=== PATIENT | female | born 1995 | race Caucasian/White ===

== ENCOUNTER 2016-12-07 21:36 | Emergency (ER) | payer OTHER ==
[2016-12-07 21:55] VITALS: BP 135/95; PULSE 78; RESP 18; TEMP 98.3
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
== END 2016-12-07 22:20 | disposition home or self-care (01) ==
LOC: EC 21:36
DX: R42 Dizziness and giddiness (principal); H92.03 Otalgia, bilateral; Z91.011 Allergy to milk products; Z88.8 Allergy status to other drugs, medicaments and biological substances
CPT/HCPCS: 99282

== ENCOUNTER 2017-02-10 21:48 | Emergency (ER) | payer OTHER ==
[2017-02-10] MEDS: SODIUM CHLORIDE 0.9% 1,000 ML IV STA (22:37)
[2017-02-10] MEDS: ONDANSETRON 4 MG/2 ML VIAL IVP STA (22:41)
[2017-02-10] MEDS: MAG HYDROX/AL HYDROX/SIMETH 30 ML, HYOSCYAMINE ELIXIR 10 ML, CIMETIDINE HCL 300 MG, LID... PO STA ×4 (22:42)
[2017-02-10 22:47] LABS: Basophils # (A) 0.1 k/uL (0-0.2); Basophils % (A) 1 %; CHCM 35.5; Eosinophils # (A) 0.2 k/uL (0-0.7); Eosinophils % (A) 2 %; HCT 46.7 % (34.0-46.0); HDW 2.73; HGB 15.7 gm/dL (11.4-16.0); Luc # (Auto) 0.33; Luc % (Auto) 3; Lymphocytes # (A) 4.8 k/uL (1.0-4.8); Lymphocytes % (A) 37 %; MCH 29.4 pg (25.0-35.0); MCHC 33.6 g/dL (31.0-37.0); MCV 87.5 fL (80.0-100.0); Mean Platelet Volume 6.9; Monocytes # (A) 0.5 k/uL (0-1.0); Monocytes % (A) 4 %; Neutrophils % (A) 54 %; RBC 5.33 m/uL (3.80-5.40); RDW 13.5 % (11.5-15.5); WBC (Perox) 12.08
[2017-02-10 22:56] LABS: ALT 59 U/L (9-52); AST 29 U/L (14-36); Alkaline Phosphatase 55 U/L (38-126); Amylase 60 U/L (30-110); Anion Gap 15 mmol/L; Appearance,Urine Cloudy (Clear); Bilirubin,Urine Negative (Negative); Blood Urea Nitrogen 15 mg/dL (7-17); Calcium 9.6 mg/dL (8.4-10.2); Carbon Dioxide 27 mmol/L (22-30); Chloride 98 mmol/L (98-107); Glucose 91 mg/dL (74-99); Glucose,Urine (UA) Negative (Negative); Ketones,Urine 1+ (Negative); Leukocyte Esterase,Urine Large (Negative); Mucus,Urine Rare /hpf; Nitrite,Urine Negative (Negative); Non-African American GFR(MDRD) >60 (>60 ml/min/1.73 sqM); PH, Urine 6.5 (5.0-8.0); Particle Count 4260; Protein,Urine Trace (Negative); RBC,Urine 2 /hpf (0-5); Sodium 140 mmol/L (137-145); Specific Gravity,Urine 1.018 (1.001-1.035); Squamous Epithelial Cell,Urine 5 /hpf (0-4); Total Bilirubin 0.6 mg/dL (0.2-1.3); Total Protein 7.7 g/dL (6.3-8.2); UA Billing (MACRO vs. MICRO) MICRO; WBC,Urine 18 /hpf (0-5)
[2017-02-10 22:58] LABS: Potassium 2.8 mmol/L (3.5-5.1)
[2017-02-10] MEDS: POTASSIUM CHLORIDE ER 20 MEQ TAB.ER PO STA (23:27)
[2017-02-10 23:30] VITALS: RESP 16
--- NOTE | 2017-02-10 23:32 | XR ---
EXAM: XR Abdomen, 1 View CLINICAL HISTORY: Reason: bilateral flank abd pain that radiates into back TECHNIQUE: Frontal supine view of the abdomen/pelvis. COMPARISON: Abdominal radiograph on 11/04/2015 FINDINGS: Abdomen: Nonobstructive bowel gas pattern. No free air. Mild amount of stool. Bones: Normal. Soft tissues: Normal. Lower chest: Normal. IMPRESSION: Normal abdominal radiographs.
[2017-02-11] MEDS: KETOROLAC 30 MG/ML 1 ML VIAL IVP STA (00:03)
[2017-02-11 00:04] VITALS: BP 113/65; PULSE 71; TEMP 99.2
[2017-02-11] MEDS: DICYCLOMINE 10 MG/ML 2 ML AMP IM STA (00:17)
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
== END 2017-02-11 00:48 | disposition home or self-care (01) ==
LOC: EC 21:48
DX: N39.0 Urinary tract infection, site not specified (principal); F32.9 Major depressive disorder, single episode, unspecified; F41.9 Anxiety disorder, unspecified; Z79.84 Long term (current) use of oral hypoglycemic drugs; Z79.899 Other long term (current) drug therapy; Z91.011 Allergy to milk products; Z86.69 Personal history of other diseases of the nervous system and sense organs
CPT/HCPCS: 36415; 80053; 82150; 83690; 85025; 81001; 87086; 74000; 99284; 96374; 96375; 96361; 96372; J0500; J2405; J1885

== ENCOUNTER 2017-04-20 09:12 | Emergency (ER) | payer OTHER ==
[2017-04-20 09:34] VITALS: RESP 18
[2017-04-20] MEDS ORDERED: FAMOTIDINE 20 MG/2 ML VIAL IV STA (10:05)
[2017-04-20] MEDS ORDERED: SODIUM CHLORIDE 0.9% 1,000 ML IV STA (10:05)
[2017-04-20] MEDS ORDERED: ONDANSETRON 4 MG/2 ML VIAL IVP STA (10:05)
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
[2017-04-20 10:31] LABS: Basophils # (A) 0.1 k/uL (0-0.2); Basophils % (A) 1 %; CH 31.2; Eosinophils # (A) 0.2 k/uL (0-0.7); Eosinophils % (A) 2 %; HCT 43.5 % (34.0-46.0); HDW 2.75; HGB 14.2 gm/dL (11.4-16.0); Luc # (Auto) 0.24; Luc % (Auto) 2; Lymphocytes # (A) 3.1 k/uL (1.0-4.8); Lymphocytes % (A) 29 %; MCH 30.2 pg (25.0-35.0); MCHC 32.7 g/dL (31.0-37.0); MCV 92.5 fL (80.0-100.0); Monocytes # (A) 0.4 k/uL (0-1.0); Monocytes % (A) 4 %; Neutrophils # (A) 6.8 k/uL (1.3-7.7); Neutrophils % (A) 63 %; RBC 4.71 m/uL (3.80-5.40); RDW 14.5 % (11.5-15.5); WBC 10.8 k/uL (4.0-11.0); WBC (Perox) 10.48
[2017-04-20 10:45] LABS: ALT 31 U/L (9-52); AST 19 U/L (14-36); Alkaline Phosphatase 52 U/L (38-126); Amylase 61 U/L (30-110); Anion Gap 10 mmol/L; Blood Urea Nitrogen 9 mg/dL (7-17); Calcium 9.6 mg/dL (8.4-10.2); Carbon Dioxide 26 mmol/L (22-30); Chloride 110 mmol/L (98-107); Glucose 85 mg/dL (74-99); Non-African American GFR(MDRD) >60 (>60 ml/min/1.73 sqM); Sodium 146 mmol/L (137-145); Total Bilirubin 0.3 mg/dL (0.2-1.3); Total Protein 6.8 g/dL (6.3-8.2)
[2017-04-20 10:49] LABS: Appearance,Urine Cloudy (Clear); Bilirubin,Urine Negative (Negative); Calcium Oxalate Crystals,Urine Few /hpf; Glucose,Urine (UA) Negative (Negative); Ketones,Urine Negative (Negative); Leukocyte Esterase,Urine Small (Negative); Mucus,Urine Moderate /hpf; Nitrite,Urine Negative (Negative); PH, Urine 5.5 (5.0-8.0); Particle Count 11183; Protein,Urine Trace (Negative); RBC,Urine 3 /hpf (0-5); Specific Gravity,Urine 1.023 (1.001-1.035); Squamous Epithelial Cell,Urine 7 /hpf (0-4); UA Billing (MACRO vs. MICRO) MICRO; Urobilinogen,Urine <2.0 mg/dL (<2.0); WBC,Urine 10 /hpf (0-5)
--- NOTE | 2017-04-20 11:15 | XR ---
EXAMINATION TYPE: XR chest 2V DATE OF EXAM: 04/20/2017 COMPARISON: 01/02/2013 TECHNIQUE: PA and lateral views submitted. HISTORY: Cough FINDINGS: The lungs are clear and there is no pneumothorax, pleural effusion, or focal pneumonia. IMPRESSION: 1. No acute process.
[2017-04-20 11:40] VITALS: BP 114/74; PULSE 73; TEMP 98.2
== END 2017-04-20 11:33 | disposition home or self-care (01) ==
LOC: EC 09:12
DX: K21.9 Gastro-esophageal reflux disease without esophagitis (principal); R11.0 Nausea; Z91.011 Allergy to milk products
CPT/HCPCS: 36415; 93005; 80053; 82150; 83690; 85025; 81001; 81025; 80306; 71020; 99284; 96374; 96375; 96361; J2405

== ENCOUNTER 2017-06-14 23:09 | Emergency (ER) | payer OTHER ==
[2017-06-14] MEDS ORDERED: SODIUM CHLORIDE 0.9% 1,000 ML IV STA (23:26)
[2017-06-14] MEDS ORDERED: PANTOPRAZOLE 40 MG/10 ML VIAL IVP STA (23:49)
[2017-06-14 23:55] LABS: Basophils # (A) 0.1 k/uL (0-0.2); Basophils % (A) 1 %; CH 29.8; CHCM 33.6; Eosinophils # (A) 0.3 k/uL (0-0.7); Eosinophils % (A) 3 %; HCT 43.2 % (34.0-46.0); HDW 2.51; HGB 13.8 gm/dL (11.4-16.0); Luc # (Auto) 0.18; Luc % (Auto) 2; Lymphocytes # (A) 4.4 k/uL (1.0-4.8); Lymphocytes % (A) 40 %; MCH 28.5 pg (25.0-35.0); MCV 88.9 fL (80.0-100.0); Mean Platelet Volume 7.3; Monocytes # (A) 0.6 k/uL (0-1.0); Monocytes % (A) 5 %; Neutrophils # (A) 5.4 k/uL (1.3-7.7); Neutrophils % (A) 49 %; RBC 4.86 m/uL (3.80-5.40); RDW 13.4 % (11.5-15.5); WBC (Perox) 11.55
[2017-06-15 00:06] LABS: ALT 33 U/L (9-52); AST 25 U/L (14-36); Alkaline Phosphatase 57 U/L (38-126); Amylase 61 U/L (30-110); Anion Gap 10 mmol/L; Blood Urea Nitrogen 13 mg/dL (7-17); Calcium 9.5 mg/dL (8.4-10.2); Carbon Dioxide 25 mmol/L (22-30); Chloride 106 mmol/L (98-107); Glucose 88 mg/dL (74-99); Non-African American GFR(MDRD) >60 (>60 ml/min/1.73 sqM); Sodium 141 mmol/L (137-145); Total Bilirubin 0.3 mg/dL (0.2-1.3); Total Protein 6.8 g/dL (6.3-8.2)
[2017-06-15 00:10] LABS: Appearance,Urine Clear (Clear); Bacteria,Urine Rare /hpf; Bilirubin,Urine Negative (Negative); Glucose,Urine (UA) Negative (Negative); Ketones,Urine Negative (Negative); Leukocyte Esterase,Urine Small (Negative); Mucus,Urine Rare /hpf; Nitrite,Urine Negative (Negative); Particle Count 1494; Protein,Urine Negative (Negative); RBC,Urine 1 /hpf (0-5); Specific Gravity,Urine 1.015 (1.001-1.035); Squamous Epithelial Cell,Urine 1 /hpf (0-4); UA Billing (MACRO vs. MICRO) MICRO; Urobilinogen,Urine <2.0 mg/dL (<2.0); WBC,Urine 3 /hpf (0-5)
--- NOTE | 2017-06-15 00:36 | XR ---
EXAMINATION TYPE: XR KUB DATE OF EXAM: 06/15/2017 COMPARISON: 02/10/2017 HISTORY: Abdominal pain TECHNIQUE: 2 views FINDINGS: There is no sign of intestinal obstruction or pneumoperitoneum. Fecal pattern is normal. Emily ng bases are clear. There are no pathologic calcifications. IMPRESSION: Nonacute abdomen. No change.
--- NOTE | 2017-06-15 01:02 | US ---
EXAMINATION TYPE: US abdomen limited DATE OF EXAM: 06/15/2017 COMPARISON: NONE CLINICAL HISTORY: Pain. RUQ pain x7 months EXAM MEASUREMENTS: Liver Length: 17.49 cm Gallbladder Wall: 0.34 cm CBD: 0.34 cm Right Kidney: 9.7 x 4.3 x 4.7 cm Pancreas: Obscured by bowel gas Liver: Increased attenuation Gallbladder: 11.5 cm Hydropic l Evidence for sonographic Bailey's sign: Yes CBD: wnl Right Kidney: No hydronephrosis or masses seen The gallbladder appears hydropic IMPRESSION: No dilated ducts. Gallbladder is large and measures 3 cm in diameter.
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
[2017-06-15 02:18] VITALS: BP 138/80; PULSE 95; RESP 18; TEMP 98.8
== END 2017-06-15 02:16 | disposition home or self-care (01) ==
LOC: EC 23:09
DX: K80.50 Calculus of bile duct without cholangitis or cholecystitis without obstruction (principal); R10.11 Right upper quadrant pain; R11.0 Nausea; Z79.3 Long term (current) use of hormonal contraceptives; Z91.011 Allergy to milk products
CPT/HCPCS: 36415; 80053; 82150; 83690; 85025; 81001; 81025; 74000; 76705; 99284; 96374; 96361; C9113

== ENCOUNTER 2017-07-04 16:52 | Inpatient (IN) | payer OTHER ==
[2017-07-04] MEDS ORDERED: SODIUM CHLORIDE 0.9% 500 ML IV STA (17:10)
[2017-07-04] MEDS ORDERED: ONDANSETRON 4 MG/2 ML VIAL IVP STA (17:10)
--- NOTE | 2017-07-04 17:22 | ED ---
General Adult HPI - General Chief complaint: Abdominal Pain Stated complaint: ABDOMINAL AND BACK PAIN, SWEATING AND NAUSEA Time Seen by Provider: 07/04/17 16:58 Source: patient Mode of arrival: ambulatory Limitations: no limitations - History of Present Illness Initial comments: 21-year-old female patient presents to the emergency department today for evaluation of vomiting and abdominal pain. Patient states that she has a long history of chronic abdominal pain. She states it is located in her midepigastric region does radiate through to her back. States that she has been evaluated here before and was diagnosed with gall bladder issues. States when she followed up with the surgeon who told her was not her gallbladder that she potentially had colitis. She is scheduled to undergo colonoscopy tomorrow. She states that throughout the day today she has been feeling nauseated and has not been able to eat. States when she took the laxative that they gave her , she immediately vomited. States that she has been feeling very nauseous since then and is concerned that she will not be able to complete the bowel prep she has planned for tonight. Patient states that her abdominal pain has been worsening over the last 4 days. States that it is generally intermittent however has been constant for the last 4 days. She is currently rating it at 8 out of 10 on a pain scale. She describes the pain as a burning cramping feeling. States that she hasn't been able to eat or drink for the last 4 days. States that she has been having diarrhea as well with this. She states she has been chilled and sweaty throughout the day today. She denies any known fevers. She states she has been having dark orange colored urine. She denies any hematuria, dysuria, urinary urgency, urinary frequency. Patient denies any recent rash, shortness breath, chest pain, numbness, tingling, dizziness, weakness, headache, visual changes, or any other complaints. - Related Data Home Medications Medication Instructions Recorded Confirmed Medroxyprogesterone Acetate 10 mg PO DIRECTED 06/14/17 07/04/17 [Provera] Bisacodyl [Dulcolax] 10 mg PO ONCE 07/04/17 07/04/17 Gavilyte-C Solution 4,000 ml PO ONCE 07/04/17 07/04/17 Multivitamins, Thera [Multivitamin 1 tab PO DAILY 07/04/17 07/04/17 (formulary)] Vitamin C/Biotin [Hair, Skin and 1 tab PO DAILY 07/04/17 07/04/17 Nails] Allergies Allergy/AdvReac Type Severity Reaction Status Date / Time lactose Allergy throat Verified 07/04/17 18:09 swelling Milk Containing Products AdvReac Unknown CONGESTION Verified 07/04/17 18:09 [Dairy] Review of Systems ROS Statement: Those systems with pertinent positive or pertinent negative responses have been documented in the HPI. ROS Other: All systems not noted in ROS Statement are negative. Past Medical History Past Medical History: Asthma, GERD/Reflux, Seizure Disorder Additional Past Medical History / Comment(s): migraines, no rx for seizure, diarrhea, wt loss and abdminal pain, fatty liver, spinal stenosis, polycystic ovarian symdrome History of Any Multi-Drug Resistant Organisms: None Reported Past Surgical History: No Surgical Hx Reported Additional Past Surgical History / Comment(s): cyst removed from scalp Past Anesthesia/Blood Transfusion Reactions: Motion Sickness Past Psychological History: Anxiety, Depression Smoking Status: Never smoker Past Alcohol Use History: None Reported Past Drug Use History: None Reported - Past Family History Mother Family Medical History: No Reported History Additional Family Medical History / Comment(s): scolosis; ovarian cyst Father Additional Family Medical History / Comment(s): problems with back discs Brother(s) Family Medical History: Hypertension General Exam Limitations: no limitations General appearance: alert, in no apparent distress, other (This is a well- developed, well-nourished adult female patient in no acute distress. Vital signs upon presentation are temperature 97.5F, pulse 96, respirations 18, blood pressure 139/92, pulse ox 97% on room air.) Eye exam: Present: normal appearance, PERRL, EOMI. Absent: scleral icterus, conjunctival injection, periorbital swelling ENT exam: Present: normal exam, normal oropharynx, mucous membranes moist Respiratory exam: Present: normal lung sounds bilaterally. Absent: respiratory distress, wheezes, rales, rhonchi, stridor Cardiovascular Exam: Present: regular rate, normal rhythm, normal heart sounds. Absent: systolic murmur, diastolic murmur, rubs, gallop, clicks GI/Abdominal exam: Present: soft, normal bowel sounds. Absent: distended, tenderness, guarding, rebound, rigid Back exam: Present: normal inspection. Absent: CVA tenderness (R), CVA tenderness (L) Neurological exam: Present: alert, oriented X3, CN II-XII intact Psychiatric exam: Present: normal affect, normal mood Skin exam: Present: warm, dry, intact, normal color. Absent: rash Course Vital Signs 07/04/17 07/04/17 07/04/17 16:54 19:13 19:58 Temperature 97.5 F L 98.9 F Pulse Rate 96 82 76 Pulse Rate [ Pulse Oximetery ] Respiratory 18 18 18 Rate Blood Pressure 139/92 135/92 144/91 Blood Pressure [Right Arm] O2 Sat by Pulse 97 95 98 Oximetry 07/04/17 21:33 Temperature 97.3 F L Pulse Rate 69 Pulse Rate [ 68 Pulse Oximetery ] Respiratory 18 Rate Blood Pressure 122/86 Blood Pressure 163/102 [Right Arm] O2 Sat by Pulse 98 Oximetry Medical Decision Making - Medical Decision Making 21-year-old female patient presented to the emergency department today for evaluation of upper abdominal pain and vomiting. Patient has a history of right upper quadrant pain times several months. She was scheduled to undergo colonoscopy tomorrow with Dr. sesay however started having vomiting when she attempted to do the bowel prep today. Labs were performed and did show an elevated AST at 674, and an elevated ALT at 893. Her bilirubin was also elevated at 3.1. Ultrasound of the right upper quadrant was performed and did show fatty liver and cholelithiasis with no ductal dilatation. Patient will be placed on nothing by mouth diet handed admitted under Dr. Guillory. I did speak to Radha torres [employer] who accepts patient. She is instructed us to consult Dr. Khan and to hold bowel prep. - Lab Data Result diagrams: 07/04/17 17:55 07/04/17 17:55 Lab Results 07/04/17 07/04/17 07/04/17 Range/Units 17:15 17:15 17:55 WBC (4.0-11.0) k/uL RBC (3.80-5.40) m/uL Hgb (11.4-16.0) gm/dL Hct (34.0-46.0) % MCV (80.0-100.0) fL MCH (25.0-35.0) pg MCHC (31.0-37.0) g/dL RDW (11.5-15.5) % Plt Count (150-450) k/uL Neutrophils % % Lymphocytes % % Monocytes % % Eosinophils % % Basophils % % Neutrophils # (1.3-7.7) k/uL Lymphocytes # (1.0-4.8) k/uL Monocytes # (0-1.0) k/uL Eosinophils # (0-0.7) k/uL Basophils # (0-0.2) k/uL Sodium 144 (137-145) mmol/L Potassium 4.0 (3.5-5.1) mmol/L Chloride 106 (98-107) mmol/L Carbon Dioxide 24 (22-30) mmol/L Anion Gap 14 mmol/L BUN 8 (7-17) mg/dL Creatinine 0.75 (0.52-1.04) mg/dL Est GFR (MDRD) Af Amer >60 (>60 ml/min/1.73 sqM) Est GFR (MDRD) Non-Af >60 (>60 ml/min/1.73 sqM) Glucose 104 H (74-99) mg/dL Calcium 10.1 (8.4-10.2) mg/dL Total Bilirubin 3.1 H (0.2-1.3) mg/dL AST 674 H (14-36) U/L ALT 893 H (9-52) U/L Alkaline Phosphatase 121 (38-126) U/L Total Protein 8.2 (6.3-8.2) g/dL Albumin 4.9 (3.5-5.0) g/dL Amylase 47 (30-110) U/L Lipase 99 (23-300) U/L Urine Color Dark Yellow Urine Appearance Cloudy H (Clear) Urine pH 5.5 (5.0-8.0) Ur Specific [place] 1.016 (1.001-1.035) Urine Protein Trace H (Negative) Urine Glucose (UA) Negative (Negative) Urine Ketones 1+ H (Negative) Urine Blood Trace H (Negative) Urine Nitrite Negative (Negative) Urine Bilirubin 2+ H (Negative) Urine Urobilinogen 4.0 (<2.0) mg/dL Ur Leukocyte Esterase Moderate H (Negative) Urine RBC 3 (0-5) /hpf Urine WBC 18 H (0-5) /hpf Ur Squamous Epith Cells 8 H (0-4) /hpf Calcium Oxalate Crystal Many H (None) /hpf Urine Bacteria Rare H (None) /hpf Hyaline Casts 1 (0-2) /lpf Urine Mucus Rare H (None) /hpf Urine HCG, Qual Not Detected (Not Detectd) 07/04/17 Range/Units 17:55 WBC 8.3 (4.0-11.0) k/uL RBC 5.58 H (3.80-5.40) m/uL Hgb 15.7 (11.4-16.0) gm/dL Hct 49.1 H (34.0-46.0) % MCV 88.0 (80.0-100.0) fL MCH 28.2 (25.0-35.0) pg MCHC 32.0 (31.0-37.0) g/dL RDW 12.6 (11.5-15.5) % Plt Count 331 (150-450) k/uL Neutrophils % 66 % Lymphocytes % 24 % Monocytes % 6 % Eosinophils % 3 % Basophils % 1 % Neutrophils # 5.5 (1.3-7.7) k/uL Lymphocytes # 2.0 (1.0-4.8) k/uL Monocytes # 0.5 (0-1.0) k/uL Eosinophils # 0.2 (0-0.7) k/uL Basophils # 0.1 (0-0.2) k/uL Sodium (137-145) mmol/L Potassium (3.5-5.1) mmol/L Chloride (98-107) mmol/L Carbon Dioxide (22-30) mmol/L Anion Gap mmol/L BUN (7-17) mg/dL Creatinine (0.52-1.04) mg/dL Est GFR (MDRD) Af Amer (>60 ml/min/1.73 sqM) Est GFR (MDRD) Non-Af (>60 ml/min/1.73 sqM) Glucose (74-99) mg/dL Calcium (8.4-10.2) mg/dL Total Bilirubin (0.2-1.3) mg/dL AST (14-36) U/L ALT (9-52) U/L Alkaline Phosphatase (38-126) U/L Total Protein (6.3-8.2) g/dL Albumin (3.5-5.0) g/dL Amylase (30-110) U/L Lipase (23-300) U/L Urine Color Urine Appearance (Clear) Urine pH (5.0-8.0) Ur Specific [place] (1.001-1.035) Urine Protein (Negative) Urine Glucose (UA) (Negative) Urine Ketones (Negative) Urine Blood (Negative) Urine Nitrite (Negative) Urine Bilirubin (Negative) Urine Urobilinogen (<2.0) mg/dL Ur Leukocyte Esterase (Negative) Urine RBC (0-5) /hpf Urine WBC (0-5) /hpf Ur Squamous Epith Cells (0-4) /hpf Calcium Oxalate Crystal (None) /hpf Urine Bacteria (None) /hpf Hyaline Casts (0-2) /lpf Urine Mucus (None) /hpf Urine HCG, Qual (Not Detectd) - Radiology Data Radiology results: report reviewed, image reviewed KUB x-ray of the abdomen was obtained and showed normal bowel gas pattern. Psoas margins are normal. No organomegaly is present. No suspicious calcifications are evident. No free air is evident. No differential air fluid levels are present. Impression by Dr. Saunders shows normal upright view abdomen. Ultrasound of the right upper quadrant shows mild diffuse fatty infiltration of the liver and cholelithiasis. Impression is by Dr. Saunders. Disposition Clinical Impression: Elevated liver enzymes, Abdominal pain Disposition: ADMITTED IP TO THIS [facility] Condition: Serious Decision to Admit Reason: Admit from EC Decision Date: 07/04/17 Decision Time: 21:33
[2017-07-04 17:54] LABS: Appearance,Urine Cloudy (Clear); Bacteria,Urine Rare /hpf; Bilirubin,Urine 2+ (Negative); Calcium Oxalate Crystals,Urine Many /hpf; Glucose,Urine (UA) Negative (Negative); Ketones,Urine 1+ (Negative); Leukocyte Esterase,Urine Moderate (Negative); Mucus,Urine Rare /hpf; Nitrite,Urine Negative (Negative); PH, Urine 5.5 (5.0-8.0); Particle Count 5342; Protein,Urine Trace (Negative); RBC,Urine 3 /hpf (0-5); Specific Gravity,Urine 1.016 (1.001-1.035); Squamous Epithelial Cell,Urine 8 /hpf (0-4); UA Billing (MACRO vs. MICRO) MICRO; WBC,Urine 18 /hpf (0-5)
[2017-07-04 18:09] LABS: Basophils # (A) 0.1 k/uL (0-0.2); Basophils % (A) 1 %; CH 28.4; CHCM 32.5; Eosinophils # (A) 0.2 k/uL (0-0.7); Eosinophils % (A) 3 %; HCT 49.1 % (34.0-46.0); HDW 2.48; HGB 15.7 gm/dL (11.4-16.0); Luc # (Auto) 0.11; Luc % (Auto) 1; Lymphocytes % (A) 24 %; MCH 28.2 pg (25.0-35.0); Mean Platelet Volume 6.6; Monocytes # (A) 0.5 k/uL (0-1.0); Monocytes % (A) 6 %; Neutrophils # (A) 5.5 k/uL (1.3-7.7); Neutrophils % (A) 66 %; RBC 5.58 m/uL (3.80-5.40); RDW 12.6 % (11.5-15.5); WBC 8.3 k/uL (4.0-11.0)
[2017-07-04 18:18] LABS: ALT 893 U/L (9-52); AST 674 U/L (14-36); Alkaline Phosphatase 121 U/L (38-126); Amylase 47 U/L (30-110); Anion Gap 14 mmol/L; Blood Urea Nitrogen 8 mg/dL (7-17); Calcium 10.1 mg/dL (8.4-10.2); Carbon Dioxide 24 mmol/L (22-30); Chloride 106 mmol/L (98-107); Glucose 104 mg/dL (74-99); Non-African American GFR(MDRD) >60 (>60 ml/min/1.73 sqM); Sodium 144 mmol/L (137-145); Total Bilirubin 3.1 mg/dL (0.2-1.3); Total Protein 8.2 g/dL (6.3-8.2)
--- NOTE | 2017-07-04 18:29 | XR ---
EXAMINATION TYPE: XR KUB DATE OF EXAM: 07/04/2017 COMPARISON: 06/15/2017 INDICATION: Abdomen pain TECHNIQUE: Upright view FINDINGS: There is a normal bowel gas pattern. Psoas margins are normal. No organomegaly is present. No suspicious calcifications are evident. No free air is evident. No differential air-fluid levels ar e present. IMPRESSION: 1. Normal upright view abdomen
[2017-07-04] MEDS ORDERED: HYDROmorphone 1 MG/ML 1 ML SYRINGE IVP STA (18:41)
--- NOTE | 2017-07-04 20:48 | US ---
EXAMINATION TYPE: US abdomen limited DATE OF EXAM: 07/04/2017 COMPARISON: CLINICAL HISTORY: Epigastric pain; Acutely Elevated Liver Enzymes. Pain, Patient states not being abl e to eat. EXAM MEASUREMENTS: Liver Length: 17.1 cm Gallbladder Wall: 0.3 cm CHD: 0.4 cm Right Kidney: 10.6 x 4.1 x 4.3 cm Pancreas: Head and tail not well seen due to overlying bowel gas. Appears echogenic. Liver: Upper limits in size. Slightly echogenic. Gallbladder: Size= 9.7 cm. Multiple mobile echogenic foci Evidence for sonographic Bailey's sign: Neg CHD: wnl Right Kidney: wnl IMPRESSION: 1. Limited visualization of the pancreas due to bowel gas. 2. Mild diffuse fatty infiltration liver. 3. Cholelithiasis.
[2017-07-04] MEDS ORDERED: NALOXONE 0.4 MG/ML 1 ML VIAL IV PRN (21:27)
[2017-07-04] MEDS: SODIUM CHLORIDE 0.9% 1,000 ML IV SCH (21:36)
[2017-07-04] MEDS: HYDROmorphone 1 MG/ML 1 ML SYRINGE IVP PRN (22:07)
[2017-07-04 22:24] VITALS: BMI 38.2
[2017-07-05] MEDS: HYDROmorphone 1 MG/ML 1 ML SYRINGE IVP PRN ×3 (04:35→12:28)
[2017-07-05] MEDS: ONDANSETRON 4 MG/2 ML VIAL IVP PRN ×3 (04:38→21:57)
[2017-07-05] MEDS: SODIUM CHLORIDE 0.9% 1,000 ML IV SCH ×2 (04:42→13:14)
[2017-07-05 05:41] LABS: Basophils % (A) 1 %; CH 28.2; CHCM 31.8; Eosinophils # (A) 0.2 k/uL (0-0.7); Eosinophils % (A) 3 %; HCT 43.4 % (34.0-46.0); HGB 13.5 gm/dL (11.4-16.0); Luc # (Auto) 0.16; Luc % (Auto) 2; Lymphocytes # (A) 2.5 k/uL (1.0-4.8); Lymphocytes % (A) 32 %; MCH 27.7 pg (25.0-35.0); MCHC 31.2 g/dL (31.0-37.0); Mean Platelet Volume 6.6; Monocytes # (A) 0.5 k/uL (0-1.0); Monocytes % (A) 6 %; Neutrophils # (A) 4.2 k/uL (1.3-7.7); Neutrophils % (A) 56 %; RBC 4.88 m/uL (3.80-5.40); RDW 12.6 % (11.5-15.5); WBC 7.6 k/uL (4.0-11.0); WBC (Perox) 7.54
[2017-07-05 05:53] LABS: ALT 647 U/L (9-52); AST 378 U/L (14-36); Alkaline Phosphatase 89 U/L (38-126); Anion Gap 10 mmol/L; Blood Urea Nitrogen 8 mg/dL (7-17); Calcium 9.4 mg/dL (8.4-10.2); Carbon Dioxide 23 mmol/L (22-30); Chloride 108 mmol/L (98-107); Glucose 91 mg/dL (74-99); Non-African American GFR(MDRD) >60 (>60 ml/min/1.73 sqM); Potassium 3.8 mmol/L (3.5-5.1); Sodium 141 mmol/L (137-145); Total Bilirubin 2.9 mg/dL (0.2-1.3); Total Protein 6.1 g/dL (6.3-8.2)
--- NOTE | 2017-07-05 09:58 | P.CONS ---
History of Present Illness - Reason for Consult Consult date: 07/05/17 ERCP evaluation Requesting physician: Arsenio Khan - History of Present Illness 21-year-old female admitted with acute nausea vomiting abdominal pain midepigastrium x 4 days. Past medical history of underlying chronic abdominal pain scheduled for outpatient EGD/colonoscopy tomorrow with Dr. Khan. She took laxative pills yand within the hour developed severe midepigastric pain radiating to her upper back. She did not drink her bowel prep. Afebrile. No bleeding. No changes in the color of her urine or stool. Similar attacks of this type of pain 1 month ago. Admission LFTs elevated; total bilirubin 3.1. AST 674. ALT 893. Alkaline phosphatase 121. Liver function tests today total bilirubin 2.9. AST 370. ALT 647. Alkaline phosphatase 89. Amylase lipase normal. HCG not detected. Ultrasound abdomen multiple mobile echogenic foci within the gallbladder. CBD within normal limits. Mild diffuse fatty infiltration of liver. No pericholecystic fluid or wall thickening. Review of Systems Constitutional: Denies fever, chills, sweats, weight gain, or loss. HEENT: Negative for migraines, blurred vision or loss, earaches, drainage, tinnitus, oral mucosal lesions, dysphagia, or odynophagia. CARDIAC: Negative for chest pain, arrhythmias, or palpitation. RESPIRATORY: Asthma. Negative for shortness of breath, hemoptysis, cough, or sputum production. GI: See HPI for pertinent findings. : Negative for hematuria, urgency, frequency, polyuria, or dysuria. GYNc: Polycystic ovarian syndrome. Denies possibility of . Negative vaginal discharge. MUSCULOSKELETAL: Negative for muscle aches, swelling, arthritis, and arthralgias. NEUROLOGIC: Seizure disorder. Negative for stroke or TIA. ENDOCRINE: Negative for thyroid problems. SKIN: Negative for rash or itching. PSYCHIATRIC: Anxiety depression All systems: negative (See HPI) Past Medical History Past Medical History: Asthma, GERD/Reflux, Seizure Disorder Additional Past Medical History / Comment(s): migraines, no rx for seizure, diarrhea, wt loss and abdminal pain, fatty liver, spinal stenosis, polycystic ovarian symdrome History of Any Multi-Drug Resistant Organisms: None Reported Past Surgical History: No Surgical Hx Reported Additional Past Surgical History / Comment(s): cyst removed from scalp Past Anesthesia/Blood Transfusion Reactions: Motion Sickness Past Psychological History: Anxiety, Depression Smoking Status: Never smoker Past Alcohol Use History: None Reported Past Drug Use History: None Reported - Past Family History Mother Family Medical History: No Reported History Additional Family Medical History / Comment(s): scolosis; ovarian cyst Father Additional Family Medical History / Comment(s): problems with back discs Brother(s) Family Medical History: Hypertension Medications and Allergies Home Medications Medication Instructions Recorded Confirmed Type Medroxyprogesterone Acetate 10 mg PO DIRECTED 06/14/17 07/04/17 History [Provera] Bisacodyl [Dulcolax] 10 mg PO ONCE 07/04/17 07/04/17 History Gavilyte-C Solution 4,000 ml PO ONCE 07/04/17 07/04/17 History Multivitamins, Thera [Multivitamin 1 tab PO DAILY 07/04/17 07/04/17 History (formulary)] Vitamin C/Biotin [Hair, Skin and 1 tab PO DAILY 07/04/17 07/04/17 History Nails] Allergies Allergy/AdvReac Type Severity Reaction Status Date / Time lactose Allergy throat Verified 07/04/17 18:09 swelling Milk Containing Products AdvReac Unknown CONGESTION Verified 07/04/17 18:09 [Dairy] Physical Exam Vitals: Vital Signs Temp Pulse Pulse Resp BP BP Pulse Ox 07/05/17 08:00 97.5 F L 67 19 126/70 95 07/05/17 04:00 98.9 F 84 20 145/89 07/04/17 23:00 20 07/04/17 21:33 97.3 F L 69 68 18 122/86 163/102 98 07/04/17 19:58 76 18 144/91 98 07/04/17 19:13 98.9 F 82 18 135/92 95 07/04/17 16:54 97.5 F L 96 18 139/92 97 Intake and Output 07/04/17 07/05/17 07/05/17 22:59 06:59 14:59 Output Total 400 400 Balance -400 -400 Output: Urine 400 400 Other: # Voids 1 1 Weight 94.8 kg General appearance: The patient is alert, oriented, in no acute distress. HET: Head is normocephalic and atraumatic. Pupils are equal and reactive. Oropharynx is clear without lesions. Neck: Supple without lymphadenopathy. Trachea midline. Heart: S1 S2. Regular rate and rhythm. Lungs: No crackles or wheezes are heard. Abdomen: Soft, midepigastric tenderness. Bowel sounds present. No peritoneal signs. No palpable organomegaly or masses. Extremities: Normal skin color and turgor. No cyanosis, rash, ulceration, clubbing, or edema. Radial and pedal pulses are 2/4 bilaterally. Neurological: No focal deficits. Strength and sensation are grossly intact. Results CBC & Chem 7: 07/05/17 05:28 07/05/17 05:28 Labs: Abnormal Lab Results - Last 24 Hours (Table) 07/04/17 07/04/17 07/04/17 Range/Units 17:15 17:55 17:55 RBC 5.58 H (3.80-5.40) m/uL Hct 49.1 H (34.0-46.0) % Chloride (98-107) mmol/L Glucose 104 H (74-99) mg/dL Total Bilirubin 3.1 H (0.2-1.3) mg/dL AST 674 H (14-36) U/L ALT 893 H (9-52) U/L Total Protein (6.3-8.2) g/dL Urine Appearance Cloudy H (Clear) Urine Protein Trace H (Negative) Urine Ketones 1+ H (Negative) Urine Blood Trace H (Negative) Urine Bilirubin 2+ H (Negative) Ur Leukocyte Esterase Moderate H (Negative) Urine WBC 18 H (0-5) /hpf Ur Squamous Epith Cells 8 H (0-4) /hpf Calcium Oxalate Crystal Many H (None) /hpf Urine Bacteria Rare H (None) /hpf Urine Mucus Rare H (None) /hpf 07/05/17 Range/Units 05:28 RBC (3.80-5.40) m/uL Hct (34.0-46.0) % Chloride 108 H (98-107) mmol/L Glucose (74-99) mg/dL Total Bilirubin 2.9 H (0.2-1.3) mg/dL AST 378 H (14-36) U/L ALT 647 H (9-52) U/L Total Protein 6.1 L (6.3-8.2) g/dL Urine Appearance (Clear) Urine Protein (Negative) Urine Ketones (Negative) Urine Blood (Negative) Urine Bilirubin (Negative) Ur Leukocyte Esterase (Negative) Urine WBC (0-5) /hpf Ur Squamous Epith Cells (0-4) /hpf Calcium Oxalate Crystal (None) /hpf Urine Bacteria (None) /hpf Urine Mucus (None) /hpf US - abdomen: report reviewed (Dr. Zhang) Assessment and Plan (1) Elevated liver enzymes Narrative/Plan: Suspect choledocholithiasis possible passage Current Visit: Yes Status: Acute Code(s): R74.8 - ABNORMAL LEVELS OF OTHER SERUM ENZYMES SNOMED Code(s): 009627258 (2) Cholelithiasis Current Visit: Yes Status: Acute Code(s): K80.20 - CALCULUS OF GALLBLADDER W /O CHOLECYSTITIS W/O OBSTRUCTION SNOMED Code(s): 891700968 (3) Abdominal pain Current Visit: Yes Status: Acute Code(s): R10.9 - UNSPECIFIED ABDOMINAL PAIN SNOMED Code(s): 91046456 Plan: 1. Hepatitis screen. 2. ERCP. 3. NPO except meds. 4. General surgery consult. Case discussed with Dr. Khan. The jig bore tool maker has discussed the risks, benefits and alternative therapies for the above-mentioned procedure and for both sedation/analgesia as well as necessary blood product administration, if indicated, as they pertain to this patient. The patient has indicated understanding and acceptance of the risks and procedures discussed. Thank you for this kind referral and the opportunity to participate in the care of your patient. This consultation was discussed with Dr. Zhang. The impression and plan of care have been directed as dictated.
--- NOTE | 2017-07-05 10:01 | P.GSCN ---
History of Present Illness Consult date: 07/05/17 Reason for Consult: Cholelithiasis with jaundice History of present illness: Thank you very much for asking me to see Ms. mckay. She is well-known to me. She is a 21-year-old white female who gives about 8 month history of pain in the upper abdomen. She recently presented to the emergency room about a month ago with abdominal pain. Had an ultrasound which showed a distended gallbladder without wall thickening or stones in the gallbladder. HIDA scan was normal. I saw him in the office subsequently. She also has with the above symptoms a diarrhea. Possibility of inflammatory condition of the bowel or peptic ulcer disease was entertained. She was scheduled for EGD and colonoscopy today. However she states over the last 4 days of pain got worse. She is had no appetite. Has had a few episodes of nausea or vomiting. She presented to the emergency room last night. Was found to have the by repeat ultrasound gallstones with multiple tiny stones in the gallbladder. Liver enzymes and bilirubin were elevated. Her urine was dark. She's had some chills. Some back pain. Diarrhea continues. Past history positive for epilepsy. Removal of the scalp cysts. Takes control pills. Also Zofran. Omeprazole. ALLERGIES none known. Social history negative. Lives with a boyfriend. Systems review as above. No urinary symptoms. No chest pain. No cardiac or respiratory problems. No vaginal discharge or bleeding. On examination the patient is well-built well-nourished somewhat the overweight with a BMI of 38.2. Slightly icteric. Head and neck otherwise normal. Recent the lungs were clear. Abdomen is soft with mild tenderness in the right upper quadrant and right flank area no guarding or rebound no mass or organomegaly noted. Extremities normal AUTOMOTIVE GENERAL MANAGER intact. Laboratory studies reviewed. LFTs are elevated. Bilirubin is 3.9. Impression cholelithiasis with the jaundice probably secondary to choledocholithiasis. Chronic diarrhea. Recommendation. Continue with IV fluids antibiotics nothing by mouth. GI was consulted for evaluation for ERCP. We'll need a laparoscopic cholecystectomy so subsequently. Follow with you. Past Medical History Past Medical History: Asthma, GERD/Reflux, Seizure Disorder Additional Past Medical History / Comment(s): migraines, no rx for seizure, diarrhea, wt loss and abdminal pain, fatty liver, spinal stenosis, polycystic ovarian symdrome History of Any Multi-Drug Resistant Organisms: None Reported Past Surgical History: No Surgical Hx Reported Additional Past Surgical History / Comment(s): cyst removed from scalp Past Anesthesia/Blood Transfusion Reactions: Motion Sickness Past Psychological History: Anxiety, Depression Smoking Status: Never smoker Past Alcohol Use History: None Reported Past Drug Use History: None Reported - Past Family History Mother Family Medical History: No Reported History Additional Family Medical History / Comment(s): scolosis; ovarian cyst Father Additional Family Medical History / Comment(s): problems with back discs Brother(s) Family Medical History: Hypertension Medications and Allergies Home Medications Medication Instructions Recorded Confirmed Type Medroxyprogesterone Acetate 10 mg PO DIRECTED 06/14/17 07/04/17 History [Provera] Bisacodyl [Dulcolax] 10 mg PO ONCE 07/04/17 07/04/17 History Gavilyte-C Solution 4,000 ml PO ONCE 07/04/17 07/04/17 History Multivitamins, Thera [Multivitamin 1 tab PO DAILY 07/04/17 07/04/17 History (formulary)] Vitamin C/Biotin [Hair, Skin and 1 tab PO DAILY 07/04/17 07/04/17 History Nails] Allergies Allergy/AdvReac Type Severity Reaction Status Date / Time lactose Allergy throat Verified 07/04/17 18:09 swelling Milk Containing Products AdvReac Unknown CONGESTION Verified 07/04/17 18:09 [Dairy] Surgical - Exam Vital Signs Temp Pulse Resp BP Pulse Ox 97.5 F L 96 18 139/92 97 07/04/17 16:54 07/04/17 16:54 07/04/17 16:54 07/04/17 16:54 07/04/17 16:54 Results - Labs 07/05/17 05:28 07/05/17 05:28 Abnormal Lab Results - Last 24 Hours (Table) 07/04/17 07/04/17 07/04/17 Range/Units 17:15 17:55 17:55 RBC 5.58 H (3.80-5.40) m/uL Hct 49.1 H (34.0-46.0) % Chloride (98-107) mmol/L Glucose 104 H (74-99) mg/dL Total Bilirubin 3.1 H (0.2-1.3) mg/dL AST 674 H (14-36) U/L ALT 893 H (9-52) U/L Total Protein (6.3-8.2) g/dL Urine Appearance Cloudy H (Clear) Urine Protein Trace H (Negative) Urine Ketones 1+ H (Negative) Urine Blood Trace H (Negative) Urine Bilirubin 2+ H (Negative) Ur Leukocyte Esterase Moderate H (Negative) Urine WBC 18 H (0-5) /hpf Ur Squamous Epith Cells 8 H (0-4) /hpf Calcium Oxalate Crystal Many H (None) /hpf Urine Bacteria Rare H (None) /hpf Urine Mucus Rare H (None) /hpf 07/05/17 Range/Units 05:28 RBC (3.80-5.40) m/uL Hct (34.0-46.0) % Chloride 108 H (98-107) mmol/L Glucose (74-99) mg/dL Total Bilirubin 2.9 H (0.2-1.3) mg/dL AST 378 H (14-36) U/L ALT 647 H (9-52) U/L Total Protein 6.1 L (6.3-8.2) g/dL Urine Appearance (Clear) Urine Protein (Negative) Urine Ketones (Negative) Urine Blood (Negative) Urine Bilirubin (Negative) Ur Leukocyte Esterase (Negative) Urine WBC (0-5) /hpf Ur Squamous Epith Cells (0-4) /hpf Calcium Oxalate Crystal (None) /hpf Urine Bacteria (None) /hpf Urine Mucus (None) /hpf Diabetes panel 07/04/17 07/05/17 Range/Units 17:55 05:28 Sodium 144 141 (137-145) mmol/L Potassium 4.0 3.8 (3.5-5.1) mmol/L Chloride 106 108 H (98-107) mmol/L Carbon Dioxide 24 23 (22-30) mmol/L BUN 8 8 (7-17) mg/dL Creatinine 0.75 0.70 (0.52-1.04) mg/dL Glucose 104 H 91 (74-99) mg/dL Calcium 10.1 9.4 (8.4-10.2) mg/dL AST 674 H 378 H (14-36) U/L ALT 893 H 647 H (9-52) U/L Alkaline Phosphatase 121 89 (38-126) U/L Total Protein 8.2 6.1 L (6.3-8.2) g/dL Albumin 4.9 3.7 (3.5-5.0) g/dL Calcium panel 07/04/17 07/05/17 Range/Units 17:55 05:28 Calcium 10.1 9.4 (8.4-10.2) mg/dL Albumin 4.9 3.7 (3.5-5.0) g/dL Pituitary panel 07/04/17 07/05/17 Range/Units 17:55 05:28 Sodium 144 141 (137-145) mmol/L Potassium 4.0 3.8 (3.5-5.1) mmol/L Chloride 106 108 H (98-107) mmol/L Carbon Dioxide 24 23 (22-30) mmol/L BUN 8 8 (7-17) mg/dL Creatinine 0.75 0.70 (0.52-1.04) mg/dL Glucose 104 H 91 (74-99) mg/dL Calcium 10.1 9.4 (8.4-10.2) mg/dL Adrenal panel 07/04/17 07/05/17 Range/Units 17:55 05:28 Sodium 144 141 (137-145) mmol/L Potassium 4.0 3.8 (3.5-5.1) mmol/L Chloride 106 108 H (98-107) mmol/L Carbon Dioxide 24 23 (22-30) mmol/L BUN 8 8 (7-17) mg/dL Creatinine 0.75 0.70 (0.52-1.04) mg/dL Glucose 104 H 91 (74-99) mg/dL Calcium 10.1 9.4 (8.4-10.2) mg/dL Total Bilirubin 3.1 H 2.9 H (0.2-1.3) mg/dL AST 674 H 378 H (14-36) U/L ALT 893 H 647 H (9-52) U/L Alkaline Phosphatase 121 89 (38-126) U/L Total Protein 8.2 6.1 L (6.3-8.2) g/dL Albumin 4.9 3.7 (3.5-5.0) g/dL
[2017-07-05] MEDS: MORPHINE SULFATE 10 MG/ML SYRINGE IVP PRN ×2 (14:17→19:50)
[2017-07-05 16:15] LABS: ALT 620 U/L (9-52); AST 294 U/L (14-36); Alkaline Phosphatase 99 U/L (38-126); Anion Gap 13 mmol/L; Blood Urea Nitrogen 10 mg/dL (7-17); Carbon Dioxide 19 mmol/L (22-30); Chloride 108 mmol/L (98-107); Glucose 72 mg/dL (74-99); Non-African American GFR(MDRD) >60 (>60 ml/min/1.73 sqM); Potassium 4.8 mmol/L (3.5-5.1); Sodium 140 mmol/L (137-145); Total Bilirubin 2.6 mg/dL (0.2-1.3)
--- NOTE | 2017-07-05 22:23 | P.HPIM ---
History of Present Illness H&P Date: 07/05/17 Chief Complaint: Nausea vomiting and abdominal pain Patient is a 21-year-old female with a known history of asthma GERD and seizure disorder came to the hospital with the complaints of nausea vomiting and abdominal pain for the past 4 days. Abdominal pain is mainly in the epigastric and right upper quadrant area radiating to the back. Patient has been having abdominal pain and diarrhea which is on and off for the past 1 year and is been on follow with Dr. Khan. Patient is scheduled for EGD and colonoscopy tomorrow. Patient is having this new symptoms and worsening nausea vomiting which made her to come to the ER. Otherwise patient denied any hematemesis or melena. No fever no chills at home. Patient was found to have elevated bilirubin level at 3.1 on admission and elevated AST and ALT level. Amylase lipase within normal limits KUB x-ray showed normal upright abdomen Ultrasound of ABDOMEN showed multiple echogenic foci within the gallbladder. Common bile ducts within normal limits. No acute cholecystitis noted. Patient does have chronic fatty infiltration of liver. Patient denied any history of hepatitis in the past. No recent travel or sick contacts at home. Review of Systems Constitutional: Patient denies any fever or chills . No generalized weakness or weight loss. Abdomen: Patient does have abdominal pain along with nausea and vomiting. No diarrhea at this time. No hematemesis no melena. Cardiovascular: Patient denies any chest pain or short of breath no palpitations. Respiratory: patient denied any cough is from production. No shortness of breath Neurologic: Patient denied any numbness or tingling headache. Musculoskeletal: Patient denies any complaints of joint swelling or deformity. Skin: Negative Psychiatric: Negative Endocrine: No heat or cold intolerance. No recent weight gain. Genitourinary: No dysuria or hematuria. All other 14 point ROS negative except the above Past Medical History Past Medical History: Asthma, GERD/Reflux, Seizure Disorder Additional Past Medical History / Comment(s): migraines, no rx for seizure, diarrhea, wt loss and abdminal pain, fatty liver, spinal stenosis, polycystic ovarian symdrome History of Any Multi-Drug Resistant Organisms: None Reported Past Surgical History: No Surgical Hx Reported Additional Past Surgical History / Comment(s): cyst removed from scalp Past Anesthesia/Blood Transfusion Reactions: Motion Sickness Past Psychological History: Anxiety, Depression Smoking Status: Never smoker Past Alcohol Use History: None Reported Past Drug Use History: None Reported - Past Family History Mother Family Medical History: No Reported History Additional Family Medical History / Comment(s): scolosis; ovarian cyst Father Additional Family Medical History / Comment(s): problems with back discs Brother(s) Family Medical History: Hypertension Medications and Allergies Home Medications Medication Instructions Recorded Confirmed Type Medroxyprogesterone Acetate 10 mg PO DIRECTED 06/14/17 07/04/17 History [Provera] Bisacodyl [Dulcolax] 10 mg PO ONCE 07/04/17 07/04/17 History Gavilyte-C Solution 4,000 ml PO ONCE 07/04/17 07/04/17 History Multivitamins, Thera [Multivitamin 1 tab PO DAILY 07/04/17 07/04/17 History (formulary)] Vitamin C/Biotin [Hair, Skin and 1 tab PO DAILY 07/04/17 07/04/17 History Nails] Allergies Allergy/AdvReac Type Severity Reaction Status Date / Time lactose Allergy throat Verified 07/04/17 18:09 swelling Milk Containing Products AdvReac Unknown CONGESTION Verified 07/04/17 18:09 [Dairy] Physical Exam Vitals: Vital Signs Temp Pulse Pulse Resp BP BP Pulse Ox 07/05/17 11:18 97.3 F L 64 20 116/72 96 07/05/17 08:00 97.5 F L 67 19 126/70 95 07/05/17 04:00 98.9 F 84 20 145/89 07/04/17 23:00 20 07/04/17 21:33 97.3 F L 69 68 18 122/86 163/102 98 07/04/17 19:58 76 18 144/91 98 07/04/17 19:13 98.9 F 82 18 135/92 95 07/04/17 16:54 97.5 F L 96 18 139/92 97 Intake and Output 07/04/17 07/05/17 07/05/17 22:59 06:59 14:59 Output Total 400 400 Balance -400 -400 Output: Urine 400 400 Other: Voiding Method Toilet # Voids 1 1 Weight 94.8 kg PHYSICAL EXAMINATION: Patient is lying in the bed comfortably, no acute distress, awake alert and oriented.. HEENT: Normocephalic. Neck is supple. Pupils reactive. Nostrils clear. Oral cavity is moist. Ears reveal no drainage. Neck reveals no JVD, carotid bruits, or thyromegaly. CHEST EXAMINATION: Trachea is central. Symmetrical expansion. Lung ramos clear to auscultation and percussion. CARDIAC: Normal S1, S2 with no gallops. No murmurs ABDOMEN: Soft. Right upper quadrant and epigastric moderate tenderness. Bowel sounds normal. No organomegaly. No abdominal bruits. Extremities: reveal no edema. No clubbing or cyanosis Neurologically awake, alert, oriented x3 with well-coordinated movements. No focal deficits noted Skin: No rash or skin lesions. Psychiatric: Co-operative. Nonsuicidal Musculoskeletal: No joint swelling or deformity. Normal range of motion. Results CBC & Chem 7: 07/05/17 05:28 07/05/17 15:14 Labs: Abnormal Lab Results - Last 24 Hours (Table) 07/04/17 07/04/17 07/04/17 Range/Units 17:15 17:55 17:55 RBC 5.58 H (3.80-5.40) m/uL Hct 49.1 H (34.0-46.0) % Chloride (98-107) mmol/L Glucose 104 H (74-99) mg/dL Total Bilirubin 3.1 H (0.2-1.3) mg/dL AST 674 H (14-36) U/L ALT 893 H (9-52) U/L Total Protein (6.3-8.2) g/dL Urine Appearance Cloudy H (Clear) Urine Protein Trace H (Negative) Urine Ketones 1+ H (Negative) Urine Blood Trace H (Negative) Urine Bilirubin 2+ H (Negative) Ur Leukocyte Esterase Moderate H (Negative) Urine WBC 18 H (0-5) /hpf Ur Squamous Epith Cells 8 H (0-4) /hpf Calcium Oxalate Crystal Many H (None) /hpf Urine Bacteria Rare H (None) /hpf Urine Mucus Rare H (None) /hpf 07/05/17 Range/Units 05:28 RBC (3.80-5.40) m/uL Hct (34.0-46.0) % Chloride 108 H (98-107) mmol/L Glucose (74-99) mg/dL Total Bilirubin 2.9 H (0.2-1.3) mg/dL AST 378 H (14-36) U/L ALT 647 H (9-52) U/L Total Protein 6.1 L (6.3-8.2) g/dL Urine Appearance (Clear) Urine Protein (Negative) Urine Ketones (Negative) Urine Blood (Negative) Urine Bilirubin (Negative) Ur Leukocyte Esterase (Negative) Urine WBC (0-5) /hpf Ur Squamous Epith Cells (0-4) /hpf Calcium Oxalate Crystal (None) /hpf Urine Bacteria (None) /hpf Urine Mucus (None) /hpf Microbiology - Last 24 Hours (Table) 07/04/17 17:15 Urine Culture - Preliminary Urine,Voided Thrombosis Risk Factor Assmnt - Choose All That Apply Each Factor Represents 1 point: Obesity (BMI >25) Other Risk Factors: No Other congenital or acquired thrombophilia - If yes, enter type in comment: No Thrombosis Risk Factor Assessment Total Risk Factor Score: 1 Thrombosis Risk Factor Assessment Level: Low Risk Assessment and Plan Assessment: #1 right upper quadrant and epigastric pain along with hyperbilirubinemia and transaminitis likely due to choledocholithiasis #2 gallstones #3 fatty infiltration of liver nonalcoholic #4 seizure disorder #5 chronic diarrhea #6 GERD Plan: Patient will be continued on nothing by mouth. Continue with IV fluids and pain management. GI and surgery has seen the patient. Planning for ERCP in the liver enzymes does not trend down in next 12-24 hours and if patient continues to have pain. Will follow closely. Further recommendations based on the clinical course. Time with Patient: Greater than 30
[2017-07-06] MEDS: SODIUM CHLORIDE 0.9% 1,000 ML IV SCH ×2 (01:00→17:00)
[2017-07-06] MEDS ORDERED: OFIRMEV PER PHARMACY MISCELLANE ONE (07:37)
[2017-07-06] MEDS ORDERED: ACETAMINOPHEN IV (For NPO) 1,000 MG in EMPTY BAG 1 BAG IVPB PRN (07:48)
[2017-07-06 09:12] LABS: INR 1.1 (<1.2); Prothrombin Time 10.6 sec (9.0-12.0)
[2017-07-06 09:18] LABS: ALT 449 U/L (9-52); AST 165 U/L (14-36); Alkaline Phosphatase 90 U/L (38-126); Anion Gap 9 mmol/L; Blood Urea Nitrogen 7 mg/dL (7-17); Calcium 9.9 mg/dL (8.4-10.2); Carbon Dioxide 26 mmol/L (22-30); Chloride 105 mmol/L (98-107); Glucose 94 mg/dL (74-99); Non-African American GFR(MDRD) >60 (>60 ml/min/1.73 sqM); Potassium 4.1 mmol/L (3.5-5.1); Sodium 140 mmol/L (137-145); Total Bilirubin 2.9 mg/dL (0.2-1.3); Total Protein 6.6 g/dL (6.3-8.2)
--- NOTE | 2017-07-06 12:14 | P.PN ---
Subjective Progress Note Date: 07/06/17 Principal diagnosis: Hepatitis Still reports abdominal pain. Total bili increased to 0.9 however transaminases improved. Objective - Vital Signs Vital signs: Vital Signs Temp 97.5 F L 07/06/17 08:00 Pulse 60 07/06/17 08:00 Resp 20 07/06/17 08:00 BP 120/73 07/06/17 08:00 Pulse Ox 98 07/06/17 08:00 Intake & Output 07/05/17 07/06/17 07/06/17 18:59 06:59 18:59 Output Total 400 Balance -400 Output: Urine 400 Other: Voiding Method Toilet Toilet Toilet # Voids 2 4 # Bowel Movements 1 - Exam General appearance: The patient is alert, oriented, in no acute distress. HET: Head is normocephalic and atraumatic. Pupils are equal and reactive. Oropharynx is clear without lesions. Neck: Supple without lymphadenopathy. Trachea midline. Heart: S1 S2. Regular rate and rhythm. Lungs: No crackles or wheezes are heard. Abdomen: Soft, midepigastric tenderness, nondistended with bowel sounds. No peritoneal signs. No palpable organomegaly or masses. Extremities: Normal skin color and turgor. No cyanosis, rash, ulceration, clubbing, or edema. Radial and pedal pulses are 2/4 bilaterally. Neurological: No focal deficits. Strength and sensation are grossly intact. - Labs CBC & Chem 7: 07/05/17 05:28 07/06/17 08:45 Labs: Abnormal Lab Results - Last 24 Hours (Table) 07/05/17 07/06/17 Range/Units 15:14 08:45 Chloride 108 H (98-107) mmol/L Carbon Dioxide 19 L (22-30) mmol/L Glucose 72 L (74-99) mg/dL Total Bilirubin 2.6 H 2.9 H (0.2-1.3) mg/dL AST 294 H 165 H (14-36) U/L ALT 620 H 449 H (9-52) U/L Microbiology - Last 24 Hours (Table) 07/04/17 17:15 Urine Culture - Preliminary Urine,Voided Assessment and Plan (1) Elevated liver enzymes Narrative/Plan: Suspect choledocholithiasis possible passage Current Visit: Yes Status: Acute Code(s): R74.8 - ABNORMAL LEVELS OF OTHER SERUM ENZYMES SNOMED Code(s): 386078443 (2) Cholelithiasis Current Visit: Yes Status: Acute Code(s): K80.20 - CALCULUS OF GALLBLADDER W /O CHOLECYSTITIS W/O OBSTRUCTION SNOMED Code(s): 567374849 (3) Abdominal pain Current Visit: Yes Status: Acute Code(s): R10.9 - UNSPECIFIED ABDOMINAL PAIN SNOMED Code(s): 30183097 Plan: 1. MRCP. CMP in a.m. 2. ERCP tentative tomorrow unless MRCP indicates otherwise. 3. Clear liquid diet. Nothing by mouth after midnight 4. General surgery consult. The dredge or barge shore hand has discussed the risks, benefits and alternative therapies for the above-mentioned procedure and for both sedation/analgesia as well as necessary blood product administration, if indicated, as they pertain to this patient. The patient has indicated understanding and acceptance of the risks and procedures discussed. Assessment and plan a care discussed with Dr. Zhang
[2017-07-06] MEDS ORDERED: LORazepam 2 MG/ML INJ IV STA (12:23)
--- NOTE | 2017-07-06 13:18 | P.PN ---
Progress Note - Text Progress Note Date: 07/06/17 Attempted to see the patient at bedside. Currently, she is in Radiology for MRCP. I discussed the case with GI today. The plan is for MRCP today and tentatively ERCP depending on MRCP results. We will base surgical timing on this plan.
--- NOTE | 2017-07-06 13:28 | MR ---
EXAMINATION TYPE: MR MRCP DATE OF EXAM: 07/06/2017 COMPARISON: CT abdomen and pelvis November 04, 2015. Limited abdominal ultrasound from 2 days ago. HISTORY: HEPATITIS, R/O CBD STONE Standard multiplanar, multisequence MRI departmental protocol Multiplanar, multisequence images of the abdomen focusing on the pancreatic duct were acquired. 2D an d 3D post processing is performed on independent workstation. FINDINGS: LIVER/GB/PANCREAS/BILIARY SYSTEM: Liver remains normal in size. There is mild diffuse signal dropout dropout consistent with diffuse fatty infiltration. No worrisome solid or cystic intrahepatic mass is present. Pancreas is normal in size without suspicious mass. Gallbladder has distended margins, it i s somewhat prominent in size but not suspiciously dilated. There are several tiny dependent gallstone s again seen. Largest stone measures 3 mm on axial image 17 series 501. Gallbladder wall measures up to 3 mm in thickness which is upper limits of normal. No surrounding fat stranding or fluid is presen t. Pancreatic duct is not dilated and is thus not well seen on MRCP images. There is no suspicious intra hepatic biliary dilatation. Extrahepatic biliary duct is upper limits of normal at 5 to 7 mm. Cystic duct is suboptimally evaluated as is tortuous near gallbladder neck. Majority of extrahepatic biliary ducts shows no filling defect or stone. There is nonvisualization of shortened segment measuring rou ghly 4- 6 mm at ampulla seen best series 701 image 61 which cannot rule out stone or stricture as the re is lack of tubular T2 hyperintensity. No suspicious proximal dilatation is seen to suggest there i s true stricture. No round stone is clearly seen at this level. OTHER: There are new tiny bilateral pleural effusions. The spleen and both adrenal glands are normal in size. There is no worrisome renal mass or hydronephrosis. There is no suspicious small or large dina wel dilatation. Visualized osseous structures are intact. IMPRESSION: Suboptimal study with multiple small gallstones seen in gallbladder, no convincing evidence of CBD st one. No biliary dilatation is present. Mild diffuse fatty infiltration of liver is redemonstrated.
--- NOTE | 2017-07-06 16:51 | P.PN ---
Subjective Patient was admitted for cholelithiasis elevated liver enzymes patient underwent MRCP which did not show any cortical gases patient most probably will undergo cholecystectomy tomorrow. Patient is still having right upper quadrant abdominal pain. Constitutional: Denied any fatigue denied any fever. Cardio vascular: denied any chest pain, palpitations Gastrointestinal patient is still nauseous and still complaining of right upper quadrant abdominal pain. Pulmonary: Denied any shortness of breath cough Neurologic denied any new focal deficits Objective - Vital Signs Vital signs: Vital Signs Temp 98.0 F 07/06/17 13:30 Pulse 76 07/06/17 13:30 Resp 12 07/06/17 13:30 BP 130/84 07/06/17 13:30 Pulse Ox 96 07/06/17 13:30 Intake & Output 07/05/17 07/06/17 07/06/17 18:59 06:59 18:59 Intake Total 60 Output Total 400 Balance -400 60 Intake: Oral 60 Output: Urine 400 Other: Voiding Method Toilet Toilet Toilet # Voids 2 4 # Bowel Movements 1 - Exam Patient is lying in the bed comfortably, no acute distress, awake alert and oriented.. HEENT: Normocephalic. Neck is supple. Pupils reactive. Nostrils clear. Oral cavity is moist. Ears reveal no drainage. Neck reveals no JVD, carotid bruits, or thyromegaly. CHEST EXAMINATION: Trachea is central. Symmetrical expansion. Lung ramos clear to auscultation and percussion. CARDIAC: Normal S1, S2 with no gallops. No murmurs ABDOMEN: Soft. Right upper quadrant and epigastric moderate tenderness. Bowel sounds normal. No organomegaly. No abdominal bruits. Extremities: reveal no edema. No clubbing or cyanosis Neurologically awake, alert, oriented x3 with well-coordinated movements. No focal deficits noted Skin: No rash or skin lesions. Psychiatric: Co-operative. Nonsuicidal Musculoskeletal: No joint swelling or deformity. Normal range of motion. - Labs CBC & Chem 7: 07/05/17 05:28 07/06/17 08:45 Labs: Abnormal Lab Results - Last 24 Hours (Table) 07/06/17 Range/Units 08:45 Total Bilirubin 2.9 H (0.2-1.3) mg/dL AST 165 H (14-36) U/L ALT 449 H (9-52) U/L Microbiology - Last 24 Hours (Table) 07/04/17 17:15 Urine Culture - Final Urine,Voided Assessment and Plan Plan: #1 cholelithiasis at the possibility of cholecystitis no cortical it as a separate as per MRCP patient does have mild transaminase which is improving and patient does have hyperbilirubinemia which is fairly stable at 2.9 #2 nonalcoholic steatohepatitis. #3 seizure disorder 4 chronic diarrhea #5 gastric esophageal reflux disease Plan as mentioned in the interval history
[2017-07-06] MEDS: ONDANSETRON 4 MG/2 ML VIAL IVP PRN (16:57)
[2017-07-06] MEDS: MORPHINE SULFATE 10 MG/ML SYRINGE IVP PRN (18:40)
[2017-07-06] MEDS ORDERED: diphenhydrAMINE 25 MG CAP PO STA (18:47)
[2017-07-07 07:59] LABS: Anion Gap 9 mmol/L; Basophils # (A) 0.1 k/uL (0-0.2); Basophils % (A) 1 %; Blood Urea Nitrogen 5 mg/dL (7-17); CH 28.1; CHCM 31.5; Carbon Dioxide 24 mmol/L (22-30); Chloride 108 mmol/L (98-107); Eosinophils # (A) 0.3 k/uL (0-0.7); Eosinophils % (A) 4 %; Glucose 103 mg/dL (74-99); HCT 42.4 % (34.0-46.0); HDW 2.31; HGB 13.7 gm/dL (11.4-16.0); Luc # (Auto) 0.14; Luc % (Auto) 2; Lymphocytes # (A) 2.1 k/uL (1.0-4.8); Lymphocytes % (A) 30 %; MCH 28.9 pg (25.0-35.0); MCHC 32.3 g/dL (31.0-37.0); MCV 89.5 fL (80.0-100.0); Mean Platelet Volume 7.1; Monocytes # (A) 0.4 k/uL (0-1.0); Monocytes % (A) 6 %; Neutrophils # (A) 3.9 k/uL (1.3-7.7); Neutrophils % (A) 57 %; Non-African American GFR(MDRD) >60 (>60 ml/min/1.73 sqM); RBC 4.74 m/uL (3.80-5.40); RDW 14.6 % (11.5-15.5); Sodium 141 mmol/L (137-145); Total Protein 6.4 g/dL (6.3-8.2); WBC (Perox) 7.12
[2017-07-07 08:00] LABS: ALT 368 U/L (9-52); AST 165 U/L (14-36); Alkaline Phosphatase 103 U/L (38-126); Bilirubin, Delta 1.9 mg/dL (0.0-0.2); Calcium 9.7 mg/dL (8.4-10.2); Total Bilirubin 4.6 mg/dL (0.2-1.3)
[2017-07-07] MEDS ORDERED: INDOMETHACIN 50MG SUPPOSITORY RECTAL ONE ×2 (08:34→12:00)
[2017-07-07] MEDS ORDERED: LEVOFLOXACIN 500MG-D5W PMX 500 MG in DEXTROSE/WATER 1 100ML.BAG IVPB STA (08:35)
[2017-07-07] MEDS: ONDANSETRON 4 MG/2 ML VIAL IVP PRN (09:54)
[2017-07-07] MEDS ORDERED: LACTATED RINGERS 1,000 ML IV SCH (10:15)
[2017-07-07] MEDS ORDERED: LEVOFLOXACIN 500MG-D5W PMX 500 MG in DEXTROSE/WATER 1 100ML.BAG IVPB ONE (12:00)
[2017-07-07] MEDS ORDERED: GLYCOPYRROLATE 0.2 MG/ML 2 ML VIAL ONE (14:05)
[2017-07-07] MEDS ORDERED: PROPOFOL 10 MG/ML 20 ML VIAL IV ONE (14:05)
[2017-07-07] MEDS ORDERED: KETAMINE 10 MG/ML 20 ML VIAL ONE (14:05)
[2017-07-07] MEDS ORDERED: ONDANSETRON 4 MG/2 ML VIAL ONE (14:05)
[2017-07-07] MEDS ORDERED: MIDAZOLAM 2 MG/2 ML VIAL ONE (14:05)
--- NOTE | 2017-07-07 14:06 | P.PN ---
Subjective Patient was admitted for cholelithiasis elevated liver enzymes patient underwent MRCP which did not show any choledocholithiasis patient most probably will undergo cholecystectomy tomorrow. Patient is still having right upper quadrant abdominal pain. 2016 Patient has elevated bilirubin, patient will undergo ERCP today possibility of laparoscopic cholecystectomy tomorrow. Constitutional: Denied any fatigue denied any fever. Cardio vascular: denied any chest pain, palpitations Gastrointestinal patient denied any abdominal pain denied any nausea vomiting. Pulmonary: Denied any shortness of breath cough Neurologic denied any new focal deficits Objective - Vital Signs Vital signs: Vital Signs Temp 97.3 F L 07/07/17 11:53 Pulse 72 07/07/17 11:53 Resp 16 07/07/17 11:53 BP 125/83 07/07/17 11:53 Pulse Ox 96 07/07/17 11:53 Intake & Output 07/06/17 07/07/17 07/07/17 18:59 06:59 18:59 Intake Total 60 Balance 60 Intake: Oral 60 Other: Voiding Method Toilet Toilet # Voids 1 # Bowel Movements 1 - Exam Patient is lying in the bed comfortably, no acute distress, awake alert and oriented.. HEENT: Normocephalic. Neck is supple. Pupils reactive. Nostrils clear. Oral cavity is moist. Ears reveal no drainage. Neck reveals no JVD, carotid bruits, or thyromegaly. CHEST EXAMINATION: Trachea is central. Symmetrical expansion. Lung ramos clear to auscultation and percussion. CARDIAC: Normal S1, S2 with no gallops. No murmurs ABDOMEN: Soft. Right upper quadrant and epigastric moderate tenderness. Bowel sounds normal. No organomegaly. No abdominal bruits. Extremities: reveal no edema. No clubbing or cyanosis Neurologically awake, alert, oriented x3 with well-coordinated movements. No focal deficits noted Skin: No rash or skin lesions. Psychiatric: Co-operative. Nonsuicidal Musculoskeletal: No joint swelling or deformity. Normal range of motion. - Labs CBC & Chem 7: 07/07/17 07:20 07/07/17 07:20 Labs: Abnormal Lab Results - Last 24 Hours (Table) 07/07/17 Range/Units 07:20 Chloride 108 H (98-107) mmol/L BUN 5 L (7-17) mg/dL Glucose 103 H (74-99) mg/dL Total Bilirubin 4.6 H (0.2-1.3) mg/dL Conjugated Bilirubin 1.8 H (0.0-0.3) mg/dL Delta Bilirubin 1.9 H (0.0-0.2) mg/dL AST 165 H (14-36) U/L ALT 368 H (9-52) U/L Microbiology - Last 24 Hours (Table) 07/04/17 17:15 Urine Culture - Final Urine,Voided Assessment and Plan Plan: #1 cholelithiasis at the possibility of cholecystitis no cortical it as a separate as per MRCP patient does have mild transaminase which is improving and patient does have hyperbilirubinemia which is worse today, because of which patient will undergo ERCP followed by possible laparoscopic cholecystectomy tomorrow #2 nonalcoholic steatohepatitis. #3 seizure disorder 4 chronic diarrhea #5 gastric esophageal reflux disease Plan as mentioned in the interval history
[2017-07-07] MEDS ORDERED: IV FLUID CONTINUATION 1,000 ML IV ONE (14:12)
[2017-07-07] MEDS ORDERED: IOHEXOL 300 MG/ML 50 ML BOTTLE MISCELLANE ONE (14:35)
--- NOTE | 2017-07-07 14:35 | P.PCN ---
Date of Procedure: 07/07/17 Procedure(s) Performed: Brief history: Patient is a 21 year-old pleasant lady scheduled for an ERCP as part of evaluation of abdominal pain and elevated serum transaminases for the last 2 days' duration. She was noted to have elevated AST and AST in the 800s range as well as bilirubin up to 4.1 g/dL. Ultrasound showed multiple gallstones. She had MRCP yesterday that did not show any evidence of gallstones and she was scheduled for a planned the laparoscopic cholecystectomy today. However for bilirubin was much worse and went up to 4.1 g/dL and hence because of a clinical suspicion for CBD stone she is scheduled for an ERCP today. Procedure performed: ERCP with biliary sphincterotomy and balloon stone extraction Preoperative diagnoses: Abdominal pain, elevated LFTs and jaundice IV sedation per anesthesia: Procedure: After informed consent was obtained from the patient and after the risks benefits and complications including bleeding perforation and pancreatitis explained in detail the patient was brought into the endoscopy unit. The patient was placed in prone position and IV conscious sedation was administered by anesthesia under continuous monitoring. The Olympus side-viewing duodenoscope was then inserted into the mouth and esophagus intubated without any difficulty. The scope was gradually advanced into the stomach and duodenum. The major papilla was identified without any difficulty. Initial cannulation resulted in opacification of the pancreatic duct that appeared normal. Subsequent cannulation resulted opaque sedation the common bile duct appeared appeared slightly dilated measuring 8 mm in diameter with a small filling defect noted. At this time the catheter was removed and a biliary sphincterotome was passed over the guidewire and advanced into the CBD. A biliary sphincterotomy was performed at 11 o'clock position and was extended to 1 cm. Following this an 8 mm balloon was passed over the guidewire into the proximal CBD and gently inflated and withdrawn and there was a small 5 mm stone seen exiting the ampulla. Repeat occlusion cholangiogram was performed and no other filling defects were identified. At this time the patient's procedure was terminated and the patient tolerated the procedure well. Impression: Normal pancreatic duct Slightly dilated common bile duct with a small filling defect status post biliary sphincterotomy with balloon stone extraction as described above Recommendations: The findings of this examination were discussed with the patient as well as a family she will be started on a clear liquid diet and repeat labs in the morning.
--- NOTE | 2017-07-07 15:12 | FL ---
Fluoroscopy HISTORY: Abnormal MRCP 1 minute 6 seconds fluoroscopy time supplied to the referring clinician. 1 intraoperative C-arm imag es document the procedure. See dictated report from gastroenterology.
--- NOTE | 2017-07-07 15:38 | P.PN ---
Subjective Progress Note Date: 07/07/17 Patient seen and examined at bedside. She complains of right upper quadrant pain and right back pain. She had morning blood work done that revealed total and direct hyperbilirubinemia. She denies any fevers, chills, chest pain or shortness of breath. She is tolerating a clear liquid diet and has been nothing by mouth for possible procedure today. She has no other complaints at this time. Objective - Vital Signs Vital signs: Vital Signs Temp 97.3 F L 07/07/17 11:53 Pulse 72 07/07/17 11:53 Resp 16 07/07/17 11:53 BP 125/83 07/07/17 11:53 Pulse Ox 96 07/07/17 11:53 Intake & Output 07/06/17 07/07/17 07/07/17 18:59 06:59 18:59 Intake Total 60 Balance 60 Intake: Oral 60 Other: Voiding Method Toilet Toilet # Voids 1 # Bowel Movements 1 - Constitutional General appearance: Present: cooperative, no acute distress, obese - EENT Eyes: Present: EOMI, PERRLA ENT: Present: hearing grossly normal - Neck Neck: Present: normal ROM - Respiratory Details: No difficulty with respiration - Cardiovascular Rhythm: regular Heart sounds: normal: S1, S2 - Gastrointestinal Gastrointestinal Comment(s): Soft, nontender, nondistended, no rebound, no guarding - Integumentary Integumentary: Present: normal turgor - Psychiatric Psychiatric: Present: A&O x's 3, appropriate affect, intact judgment & insight - Labs CBC & Chem 7: 07/07/17 07:20 07/07/17 07:20 Labs: Abnormal Lab Results - Last 24 Hours (Table) 07/07/17 Range/Units 07:20 Chloride 108 H (98-107) mmol/L BUN 5 L (7-17) mg/dL Glucose 103 H (74-99) mg/dL Total Bilirubin 4.6 H (0.2-1.3) mg/dL Conjugated Bilirubin 1.8 H (0.0-0.3) mg/dL Delta Bilirubin 1.9 H (0.0-0.2) mg/dL AST 165 H (14-36) U/L ALT 368 H (9-52) U/L Microbiology - Last 24 Hours (Table) 07/04/17 17:15 Urine Culture - Final Urine,Voided Assessment and Plan Plan: 21-year-old female with cholelithiasis and possible choledocholithiasis I discussed the hyperbilirubinemia found today with the GI team. The plan is for an ERCP this afternoon. Once this is completed the patient will likely undergo a laparoscopic cholecystectomy. She is able to have clear liquid diet post procedure and nothing by mouth after midnight.
[2017-07-07] MEDS: PANTOPRAZOLE 40 MG/10 ML VIAL IVP SCH (21:39)
[2017-07-07] MEDS ORDERED: BENZOCAINE/MENTHOL LOZENG 1 EACH LOZENGE MUCOUS MEM PRN (22:00)
[2017-07-07] MEDS: SODIUM CHLORIDE 0.9% 1,000 ML IV SCH (23:35)
[2017-07-08] MEDS: SODIUM CHLORIDE 0.9% 1,000 ML IV SCH ×2 (09:05→16:31)
[2017-07-08] MEDS: PANTOPRAZOLE 40 MG/10 ML VIAL IVP SCH (09:05)
[2017-07-08] MEDS: ONDANSETRON 4 MG/2 ML VIAL IVP PRN ×2 (09:12→13:21)
[2017-07-08 12:36] LABS: Basophils # (A) 0.1 k/uL (0-0.2); Basophils % (A) 1 %; CH 28.4; CHCM 32.2; Eosinophils # (A) 0.2 k/uL (0-0.7); Eosinophils % (A) 2 %; HCT 44.4 % (34.0-46.0); HDW 2.43; HGB 14.1 gm/dL (11.4-16.0); Luc # (Auto) 0.15; Luc % (Auto) 2; Lymphocytes # (A) 2.2 k/uL (1.0-4.8); Lymphocytes % (A) 22 %; MCH 28.2 pg (25.0-35.0); MCHC 31.8 g/dL (31.0-37.0); MCV 88.6 fL (80.0-100.0); Mean Platelet Volume 6.7; Monocytes # (A) 0.3 k/uL (0-1.0); Monocytes % (A) 4 %; Neutrophils # (A) 6.9 k/uL (1.3-7.7); Neutrophils % (A) 71 %; RBC 5.01 m/uL (3.80-5.40); RDW 13.2 % (11.5-15.5); WBC 9.7 k/uL (4.0-11.0); WBC (Perox) 9.68
[2017-07-08 12:53] LABS: ALT 318 U/L (9-52); AST 116 U/L (14-36); Alkaline Phosphatase 100 U/L (38-126); Anion Gap 12 mmol/L; Bilirubin, Delta 0.8 mg/dL (0.0-0.2); Blood Urea Nitrogen 8 mg/dL (7-17); Carbon Dioxide 22 mmol/L (22-30); Chloride 108 mmol/L (98-107); Glucose 88 mg/dL (74-99); Non-African American GFR(MDRD) >60 (>60 ml/min/1.73 sqM); Sodium 142 mmol/L (137-145); Total Bilirubin 1.4 mg/dL (0.2-1.3); Total Protein 6.9 g/dL (6.3-8.2)
[2017-07-08] MEDS ORDERED: IV FLUID CONTINUATION 900 ML IV ONE (13:14)
[2017-07-08] MEDS ORDERED: LACTATED RINGERS 1,000 ML IV SCH (13:33)
[2017-07-08] MEDS ORDERED: HYDROmorphone 0.5 MG/0.5 ML SYRINGE IVP PRN ×2 (13:33→16:53)
--- NOTE | 2017-07-08 13:33 | P.PN ---
Subjective Progress Note Date: 07/08/17 progress note being dictated for Dr. Du Interval history:Patient was admitted for cholelithiasis elevated liver enzymes patient underwent MRCP which did not show any choledocholithiasis patient most probably will undergo cholecystectomy tomorrow. Patient is still having right upper quadrant abdominal pain. 2016 Patient has elevated bilirubin, patient will undergo ERCP today possibility of laparoscopic cholecystectomy tomorrow. Constitutional: Denied any fatigue denied any fever. Cardio vascular: denied any chest pain, palpitations Gastrointestinal patient denied any abdominal pain denied any nausea vomiting. Pulmonary: Denied any shortness of breath cough Neurologic denied any new focal deficits 07/08/2017: Status post ERCP ,reporting normal pancreatic duct, slightly dilated common bile duct with small filling defect status post biliary sphincterotomy with balloon stone extractionsmall 5 mm stone exiting the ampulla. tolerated procedure well. T bili down to 1.4,LFTs improving.scheduled for laparoscopic cholecystectomy this afternoon.couple of episodes of diarrhea.complains of mid epigastric discomfort. Currently no nausea vomiting. Denies chest pain, palpitations or increased shortness of breath. Objective - Vital Signs Vital signs: Vital Signs Temp 97.4 F L 07/08/17 13:16 Pulse 74 07/08/17 13:16 Resp 16 07/08/17 13:16 BP 142/83 07/08/17 13:16 Pulse Ox 98 07/08/17 13:16 Intake & Output 07/07/17 07/08/17 07/08/17 18:59 06:59 18:59 Intake Total 300 Output Total 200 Balance 100 Intake: IV 300 Output: Urine 200 Other: # Voids 1 1 # Bowel Movements 1 - Exam Patient is lying in the bed comfortably, no acute distress, awake alert and oriented.. HEENT: Normocephalic. Neck is supple. Pupils reactive. Nostrils clear. Oral cavity is moist. Ears reveal no drainage. Neck reveals no JVD, carotid bruits, or thyromegaly. CHEST EXAMINATION: Trachea is central. Symmetrical expansion. Lung ramos clear to auscultation and percussion. CARDIAC: Normal S1, S2 with no gallops. No murmurs ABDOMEN: Soft. Right upper quadrant and epigastric moderate tenderness. Bowel sounds normal. No organomegaly. No abdominal bruits. Extremities: reveal no edema. No clubbing or cyanosis Neurologically awake, alert, oriented x3 with well-coordinated movements. No focal deficits noted Skin: No rash or skin lesions. Psychiatric: Co-operative. Nonsuicidal Musculoskeletal: No joint swelling or deformity. Normal range of motion. - Labs CBC & Chem 7: 07/08/17 12:22 07/08/17 12:22 Labs: Abnormal Lab Results - Last 24 Hours (Table) 07/08/17 Range/Units 12:22 Chloride 108 H (98-107) mmol/L Total Bilirubin 1.4 H (0.2-1.3) mg/dL Delta Bilirubin 0.8 H (0.0-0.2) mg/dL AST 116 H (14-36) U/L ALT 318 H (9-52) U/L Assessment and Plan Assessment: #1 cholelithiasis at the possibility of cholecystitis,status post ERCP;normal pancreatic duct, slightly dilated common bile duct with small filling defect status post biliary sphincterotomy with balloon stone extractionsmall 5 mm stone exiting the ampulla. Lap. Choley. pending #2 nonalcoholic steatohepatitis. #3 seizure disorder 4 chronic diarrhea #5 gastric esophageal reflux disease plan: Continue current medication regime monitoring. Awaiting procedure. aggressive pulmonary toileting. Discharge planning in progress for tomorrow. The impression and plan of care has been dictated as directed. : I performed a history and examination of this patient, discussed the same with the dictator. I agree with the dictator's note ,documented as a scribe. Any additional findings or plans will be noted.
[2017-07-08 13:54] LABS: Hepatitis B Virus DNA Not detected (Not detected); Hepatitis B Virus DNA, Quant <10 IU/mL (<10); Log HBV IU/mL <1.00 (<1.00)
[2017-07-08] MEDS ORDERED: DEXAMETHASONE SOD PHOS (MDV) 100 MG/10 ML VIAL IVP ONE (14:00)
[2017-07-08] MEDS ORDERED: SCOPOLAMINE 1.5MG/72HR PATCH TRANSDERM ONE (14:00)
[2017-07-08] MEDS ORDERED: ceFAZolin 2,000 MG in DEXTROSE/WATER 1 50ML.BAG IVPB STA (14:07)
[2017-07-08] MEDS ORDERED: ceFAZolin IN SWFI 2 GM/20 ML SYRINGE IVP STA (14:09)
[2017-07-08] MEDS ORDERED: PROPOFOL 10 MG/ML 20 ML VIAL IV ONE (14:14)
[2017-07-08] MEDS ORDERED: HEPARIN SODIUM,PORCINE 5,000 UNIT/ML 1 ML VIAL ONE (14:14)
[2017-07-08] MEDS ORDERED: fentaNYL (PF) 50 MCG/ML 2 ML AMP ONE (14:14)
[2017-07-08] MEDS ORDERED: SUCCINYLCHOLINE CHLORIDE 100 MG/5 ML SYR IV ONE (14:14)
[2017-07-08] MEDS ORDERED: NEOSTIGMINE 1 MG/ML 10 ML VIAL ONE (14:14)
[2017-07-08] MEDS ORDERED: LIDOCAINE 1% INJ 10MG/ML (20 ML MDV) ONE (14:14)
[2017-07-08] MEDS ORDERED: VECURONIUM 10 MG VIAL IV ONE (14:14)
[2017-07-08] MEDS ORDERED: GLYCOPYRROLATE 0.2 MG/ML 2 ML VIAL ONE (14:14)
[2017-07-08] MEDS ORDERED: HYDROmorphone (PF) 1 MG/ML ONE (14:14)
[2017-07-08] MEDS ORDERED: BUPIVACAIN-EPI 0.5%-1:200,000 30 ML VIAL SQ ONE (14:35)
[2017-07-08] MEDS ORDERED: MORPHINE SULFATE 4 MG/ML SYRINGE IVP PRN (14:45)
--- NOTE | 2017-07-08 15:44 | P.OP ---
Date of Procedure: 07/08/17 Preoperative Diagnosis: Cholelithiasis With recent history of choledocholithiasis Postoperative Diagnosis: Cholelithiasis With recent history of choledocholithiasis Procedure(s) Performed: Laparoscopic Cholecystecomy Anesthesia: PETE Surgeon: Cece Porter Estimated Blood Loss (ml): 5 Pathology: other (Gallbladder and contents) Condition: stable Disposition: floor Indications for Procedure: 21-year-old female presented to the emergency department with abdominal pain. She is known to have a history of right upper quadrant pain however has had multiple negative imaging studies of her gallbladder. On this admission she was found to have cholelithiasis on ultrasound and had elevated bilirubins. MRCP was performed that did not show any obstruction of her common bile duct however her bilirubin levels continued to rise. An ERCP was performed with sphincterotomy and a stone was pulled out of the common bile duct. She has been stable since that procedure and has elected for laparoscopic cholecystectomy secondary to the cholelithiasis and choledocholithiasis. She has been explained the risks, benefits and alternatives to the procedure. She did provide consent prior to attending the operating suite. Operative Findings: Edematous gallbladder with dense omental adhesions Description of Procedure: The patient was brought into the operating suite and placed in supine position on the operating table. Sedation was provided by anesthesia and the patient underwent endotracheal intubation. The patient was then prepped and draped in regular sterile fashion. A incision was made to the right lateral umbilicus and the abdomen was entered under direct visualization with a Visiport. Once within the abdomen pneumoperitoneum was easily achieved. An additional 5 mm port was placed at the subxiphoid position. And 2 additional 5 mm ports were placed in the right upper quadrant. The patient was then placed in appropriate position. The gallbladder was grasped and it was noted to be edematous with dense omental adhesions. The omental adhesions were peeled away bluntly. The gallbladder was continued to be grasped and retracted and dissection was carried bluntly to reveal the cystic duct and the cystic artery. Both the cystic duct and cystic artery were skeletonized. 2 clips were placed proximally on the cystic duct and one distally and the cystic duct was ligated. 2 clips were placed proximally on the cystic artery and one distally and the cystic artery was ligated. At this point electrocautery was used to dissect the gallbladder off of the gallbladder fossa. Once this was completed the gallbladder was placed in a Endo Catch bag and removed from the abdomen from the lateral umbilical incision site. Copious amounts of irrigation was used in the right upper quadrant. Hemostasis was noted to be maintained. A Kwame Bradford device with a 0 Vicryl suture was used to close the lateral umbilical incision and a [id number] manner. Pneumoperitoneum was then evacuated. All ports were removed. All skin incisions were then closed with 4-0 Vicryl subcuticular sutures. Skin glue was applied. The patient was then awakened in the operating suite and taken to postanesthesia care unit in stable condition.
[2017-07-08] MEDS: HEPARIN SODIUM,PORCINE 5,000 UNIT/ML 1 ML VIAL SQ SCH ×2 (16:31→23:40)
[2017-07-08] MEDS: DOCUSATE 100 MG CAP PO SCH (20:56)
[2017-07-08] MEDS: HYDROcodone/APAP 5-325MG 1 EACH TAB PO PRN (21:20)
[2017-07-08] MEDS ORDERED: ALPRAZolam 0.5 MG TAB PO PRN (21:28)
[2017-07-09] MEDS: HYDROcodone/APAP 5-325MG 1 EACH TAB PO PRN ×2 (06:39→10:23)
[2017-07-09 07:50] VITALS: RESP 20
[2017-07-09 08:31] VITALS: BP 139/91; PULSE 78; TEMP 97.4
--- NOTE | 2017-07-09 08:36 | P.PN ---
Subjective Progress Note Date: 07/09/17 Patient seen and examined at bedside. I received multiple phone calls overnight about the patient secondary to her refusal to ambulate, refusal use incentive spirometry, refusal of heparin and refusal of clear liquid diet. This morning at bedside the patient states that physicians and nurses have been bothering her since 5 AM. She is refusing blood draws this a.m. She states that she has pain in the back of her throat and around her incision sites. She denies any nausea and vomiting. She refuses to ambulate this morning. She states that she has urinated twice since surgery. She denies any bowel function. Objective - Vital Signs Vital signs: Vital Signs Temp 96.8 F L 07/08/17 20:40 Pulse 80 07/09/17 07:46 Resp 20 07/09/17 07:46 BP 140/80 07/08/17 19:15 Pulse Ox 95 07/08/17 19:15 Intake & Output 07/08/17 07/09/17 07/09/17 18:59 06:59 18:59 Intake Total 600 480 Output Total 10 Balance 590 480 Intake: IV 600 Oral 480 Output: Estimated Blood Loss 10 Other: # Voids 3 1 # Bowel Movements 1 - Constitutional General appearance: Present: no acute distress, obese - EENT Eyes: Present: EOMI, PERRLA ENT: Present: hearing grossly normal - Neck Neck: Present: normal ROM. Absent: lymphadenopathy - Respiratory Details: No difficulty with respiration - Cardiovascular Rhythm: regular Heart sounds: normal: S1, S2 - Gastrointestinal Gastrointestinal Comment(s): Soft, appropriate tenderness, nondistended, no rebound, no guarding, incision sites are clean dry and intact - Integumentary Integumentary: Present: normal turgor - Psychiatric Psychiatric: Present: A&O x's 3 - Labs CBC & Chem 7: 07/08/17 12:22 07/08/17 12:22 Labs: Abnormal Lab Results - Last 24 Hours (Table) 07/08/17 Range/Units 12:22 Chloride 108 H (98-107) mmol/L Total Bilirubin 1.4 H (0.2-1.3) mg/dL Delta Bilirubin 0.8 H (0.0-0.2) mg/dL AST 116 H (14-36) U/L ALT 318 H (9-52) U/L Assessment and Plan Plan: 21-year-old female status post laparoscopic cholecystectomy - Currently refusing most medical care - I have tried to discuss the importance of ambulating postoperatively, incentive spirometry postoperatively, lab work secondary to her history of choledocholithiasis, however the patient refuses any of this care - At this point she is surgically stable for discharge with instructions to return to the emergency department with any additional issues
--- NOTE | 2017-07-09 09:42 | P.PN ---
Subjective Progress Note Date: 07/09/17 Principal diagnosis: Hepatitis Status post laparoscopic cholecystectomy yesterday for choledocholithiasis. ERCP day prior with stone removal. Patient refuses blood work this morning. Liver function tests were improving prior to surgery. Objective - Vital Signs Vital signs: Vital Signs Temp 97.4 F L 07/09/17 08:00 Pulse 78 07/09/17 08:00 Resp 20 07/09/17 08:00 BP 139/91 07/09/17 08:00 Pulse Ox 95 07/09/17 08:00 Intake & Output 07/08/17 07/09/17 07/09/17 18:59 06:59 18:59 Intake Total 600 480 Output Total 10 Balance 590 480 Intake: IV 600 Oral 480 Output: Estimated Blood Loss 10 Other: # Voids 3 1 # Bowel Movements 1 - Exam General appearance: The patient is alert, oriented, in no acute distress. HET: Head is normocephalic and atraumatic. Pupils are equal and reactive. Oropharynx is clear without lesions. Neck: Supple without lymphadenopathy. Trachea midline. Heart: S1 S2. Regular rate and rhythm. Lungs: No crackles or wheezes are heard. Abdomen: Soft, surgical laparoscopic incisions without erythema, nondistended with bowel sounds. No peritoneal signs. No palpable organomegaly or masses. Extremities: Normal skin color and turgor. No cyanosis, rash, ulceration, clubbing, or edema. Radial and pedal pulses are 2/4 bilaterally. Neurological: No focal deficits. Strength and sensation are grossly intact. - Labs CBC & Chem 7: 07/08/17 12:22 07/08/17 12:22 Labs: Abnormal Lab Results - Last 24 Hours (Table) 07/08/17 Range/Units 12:22 Chloride 108 H (98-107) mmol/L Total Bilirubin 1.4 H (0.2-1.3) mg/dL Delta Bilirubin 0.8 H (0.0-0.2) mg/dL AST 116 H (14-36) U/L ALT 318 H (9-52) U/L Assessment and Plan (1) Elevated liver enzymes Narrative/Plan: Choledocholithiasis status post ERCP status post laparoscopic cholecystectomy Current Visit: Yes Status: Acute Code(s): R74.8 - ABNORMAL LEVELS OF OTHER SERUM ENZYMES SNOMED Code(s): 658715563 (2) Cholelithiasis Current Visit: Yes Status: Acute Code(s): K80.20 - CALCULUS OF GALLBLADDER W /O CHOLECYSTITIS W/O OBSTRUCTION SNOMED Code(s): 270392061 (3) Abdominal pain Current Visit: Yes Status: Acute Code(s): R10.9 - UNSPECIFIED ABDOMINAL PAIN SNOMED Code(s): 79870231 Plan: 1. Discharge per medicine/surgery. Assessment and plan a care discussed with Dr. Snow
[2017-07-09] MEDS: HEPARIN SODIUM,PORCINE 5,000 UNIT/ML 1 ML VIAL SQ SCH (09:49)
[2017-07-09] MEDS: DOCUSATE 100 MG CAP PO SCH (09:49)
[2017-07-09] MEDS: PANTOPRAZOLE 40 MG/10 ML VIAL IVP SCH (10:09)
--- NOTE | 2017-07-09 13:35 | P.DS ---
Providers Date of admission: 07/04/17 21:33 Expected date of discharge: 07/09/17 Attending physician: Jimmy Du Consults: 07/05/17 09:16 Consult Physician Stat Consulting Provider: Arsenio Khan Consult Reason/Comments: GALLSTONES Do you want consulting provider notified?: Already Contacted General Surgery, Dr. German FELICIANO, Dr. Zhang Primary care physician: [facility] Course: Final Diagnoses: #1 cholelithiasis at the possibility of cholecystitis,status post ERCP;normal pancreatic duct, slightly dilated common bile duct with small filling defect status post biliary sphincterotomy with balloon stone extractionsmall 5 mm stone exiting the ampulla. Lap. Choley. pending #2 nonalcoholic steatohepatitis. #3 seizure disorder 4 chronic diarrhea #5 gastric esophageal reflux disease Hospital course: This is a 21-year-old female admitted for cholelithiasis, elevated liver enzymes patient underwent ERCP was stone removal which did not show any choledocholithiasis, s/p cholecystectomy. LFTs were improving prior to surgery. Patient declined post surgery CMP, subcu heparin, IS, and requests to ambulate in [place], despite encouragement, re- explanation of rationales, and risks of noncompliance. Cleared by surgery for discharge. Patient is being discharged home in a stable condition with guarded prognosis. The impression and plan of care has been dictated as directed. : I performed a history and examination of this patient, discussed the same with the dictator. I agree with the dictator's note ,documented as a scribe. Any additional findings or plans will be noted. 2016 Patient has elevated bilirubin, patient will undergo ERCP today possibility of laparoscopic cholecystectomy tomorrow. Patient Condition at Discharge: Stable Plan - Discharge Summary New Discharge Prescriptions: New Docusate [Colace] 100 mg PO BID #20 cap HYDROcodone/APAP 5-325MG [[place] 5-325] 1 each PO Q6H PRN #20 tab PRN Reason: Pain Pantoprazole Sodium [Protonix] 40 mg PO DAILY #30 tablet.dr Continue Medroxyprogesterone Acetate [Provera] 10 mg PO DIRECTED Vitamin C/Biotin [Hair, Skin and Nails] 1 tab PO DAILY Multivitamins, Thera [Multivitamin (formulary)] 1 tab PO DAILY Discontinued Gavilyte-C Solution 4,000 ml PO ONCE Bisacodyl [Dulcolax] 10 mg PO ONCE Discharge Medication List Medroxyprogesterone Acetate [Provera] 10 mg PO DIRECTED 06/14/17 [History] Multivitamins, Thera [Multivitamin (formulary)] 1 tab PO DAILY 07/04/17 [History ] Vitamin C/Biotin [Hair, Skin and Nails] 1 tab PO DAILY 07/04/17 [History] Docusate [Colace] 100 mg PO BID #20 cap 07/09/17 [Rx] HYDROcodone/APAP 5-325MG [[place] 5-325] 1 each PO Q6H PRN #20 tab 07/09/17 [Rx] Pantoprazole Sodium [Protonix] 40 mg PO DAILY #30 tablet. 07/09/17 [Rx] Follow up Appointment(s)/Referral(s): Bunny Deluca DO [Primary Care Provider] - 1 Week Cece Porter DO [Doctor of Osteopathic Medicine] - 07/19/17 2:45 pm (You have an appointment with Dr Porter on Wednesday, July 19, 2017 at 2:45 pm.) Ambulatory/Diagnostic Orders: Comprehensive Metabolic Panel [LAB.AMB] Time Frame: 3 Days, Location: Determined By Patient Patient Instructions/Handouts: How to Use an Incentive Spirometer (DC), Low Fat Diet (GEN), Laparoscopic Cholecystectomy (DC) Activity/Diet/Wound Care/Special Instructions: Drink plenty of fluids. Low fat diet. May shower daily. No tub baths, no hot tubs. Keep steri strips in place. They will fall off on their own. No driving, no heavy lifting, no house work. Limit steps. Call Dr Porter if you develop a fever, increase in pain, unable to urinate, or if you have any other questions or concerns. Follow up with your primary physician. Have the blood work done before you see Dr Porter for you follow up appointment.
== END 2017-07-09 12:40 | disposition home or self-care (01) | DRG 263 ==
LOC: EC 16:52 → 6PED 21:33
PROVIDERS: ADMIT Hospitalist; ATTEND Hospitalist
PROC: 0FC98ZZ Extirpation of Matter from Common Bile Duct, Via Natural or Artificial Opening Endoscopic (ICD-10-PCS; 2017-07-07 08:30)
PROC: BF101ZZ Fluoroscopy of Bile Ducts using Low Osmolar Contrast (ICD-10-PCS; 2017-07-07 08:30)
PROC: 0FT44ZZ Resection of Gallbladder, Percutaneous Endoscopic Approach (ICD-10-PCS; principal; 2017-07-08 14:00)
DX: K80.70 Calculus of gallbladder and bile duct without cholecystitis without obstruction (principal); K75.81 Nonalcoholic steatohepatitis (NASH); J45.909 Unspecified asthma, uncomplicated; K21.9 Gastro-esophageal reflux disease without esophagitis; M48.00 Spinal stenosis, site unspecified; K52.9 Noninfective gastroenteritis and colitis, unspecified; E66.3 Overweight; Z82.49 Family history of ischemic heart disease and other diseases of the circulatory system; Z79.899 Other long term (current) drug therapy; Z91.011 Allergy to milk products; Z86.69 Personal history of other diseases of the nervous system and sense organs; Z86.59 Personal history of other mental and behavioral disorders
CPT/HCPCS: 36415; 43260; 43262; 43264; 74000; 74181; 74330; 76705; 80048; 80053; 80074; 80076; 81001; 81025; 82150; 82248; 83690; 85025; 85610; 87086; 87517; 88304; 96361; 96374; 96375; 99285

== ENCOUNTER 2017-09-12 17:54 | Emergency (ER) | payer OTHER ==
[2017-09-12] MEDS ORDERED: IBUPROFEN 600 MG TAB PO STA (18:02)
[2017-09-12] MEDS ORDERED: ACETAMINOPHEN TAB 500 MG TAB PO STA (18:02)
--- NOTE | 2017-09-12 19:32 | XR ---
EXAMINATION TYPE: XR chest 2V DATE OF EXAM: 09/12/2017 COMPARISON: April 20, 2017. HISTORY: Cough TECHNIQUE: Frontal and lateral views of the chest are obtained. FINDINGS: There is no focal air space opacity, pleural effusion, or pneumothorax seen. The cardiac silhouette size is within normal limits. The osseous structures are intact. Mild dextroconvex curva ture of the lower thoracic spine is noted. IMPRESSION: No acute cardiopulmonary process.
--- NOTE | 2017-09-12 19:36 | ED ---
Fever HPI - General Chief Complaint: Fever Stated Complaint: Sore Throat/Fever Time Seen by Provider: 09/12/17 18:59 Source: patient Mode of arrival: ambulatory Limitations: no limitations - History of Present Illness Initial Comments: 22-year-old female patient presents to the emergency department today for complaints of fever. She states that she has had a fever for approximately the last 24 hours. States is at high as 102 at home. She states that she has had nasal congestion and facial pressure for the last 2 weeks. patient states that she does have blood-tinged mucus production when blowing her nose. Patient states that she did start coughing and developed a sore throat last evening. She denies coughing up any sputum. She denies any chest pain, dysuria, hematuria, urinary urgency, urinary frequency. she states that she is feeling generally unwell and woozy. Patient denies any recent rash, shortness breath, chest pain, abdominal pain, nausea, vomiting, diarrhea, constipation, back pain , numbness, tingling, hematuria, dysuria, urinary urgency, urinary frequency, headache, visual changes, or any other complaints. - Related Data Home Medications Medication Instructions Recorded Confirmed Medroxyprogesterone Acetate 10 mg PO DIRECTED 06/14/17 07/04/17 [Provera] Multivitamins, Thera [Multivitamin 1 tab PO DAILY 07/04/17 07/04/17 (formulary)] Vitamin C/Biotin [Hair, Skin and 1 tab PO DAILY 07/04/17 07/04/17 Nails] Previous Rx's Medication Instructions Recorded Docusate [Colace] 100 mg PO BID #20 cap 07/09/17 HYDROcodone/APAP 5-325MG [[place] 1 each PO Q6H PRN #20 tab 07/09/17 5-325] Pantoprazole Sodium [Protonix] 40 mg PO DAILY #30 tablet. 07/09/17 Allergies Allergy/AdvReac Type Severity Reaction Status Date / Time lactose Allergy throat Verified 09/12/17 18:01 swelling Milk Containing Products AdvReac Unknown CONGESTION Verified 09/12/17 18:01 [Dairy] Review of Systems ROS Statement: Those systems with pertinent positive or pertinent negative responses have been documented in the HPI. ROS Other: All systems not noted in ROS Statement are negative. Past Medical History Past Medical History: Asthma, GERD/Reflux, Seizure Disorder Additional Past Medical History / Comment(s): migraines, no rx for seizure, diarrhea, wt loss and abdminal pain, fatty liver, spinal stenosis, polycystic ovarian symdrome History of Any Multi-Drug Resistant Organisms: None Reported Past Surgical History: No Surgical Hx Reported Additional Past Surgical History / Comment(s): cyst removed from scalp Past Anesthesia/Blood Transfusion Reactions: Motion Sickness Past Psychological History: Anxiety, Depression Smoking Status: Never smoker Past Alcohol Use History: None Reported Past Drug Use History: None Reported - Past Family History Mother Family Medical History: No Reported History Additional Family Medical History / Comment(s): scolosis; ovarian cyst Father Additional Family Medical History / Comment(s): problems with back discs Brother(s) Family Medical History: Hypertension General Exam Limitations: no limitations General appearance: alert, in no apparent distress, other (this is a well- developed, well-nourished adult female patient in no acute distress. Vital signs upon presentation are temperature 102.0F, pulse 152, respirations 18, blood pressure 164/91, pulse ox 96% on room air.) Eye exam: Present: normal appearance, PERRL, EOMI. Absent: scleral icterus, conjunctival injection, periorbital swelling ENT exam: Present: normal exam, mucous membranes moist, TM's normal bilaterally , other (no tonsillar hypertrophy or exudate noted.). Absent: normal oropharynx (pharyngeal erythema) Neck exam: Present: normal inspection, lymphadenopathy (left sided lymphadenopathy). Absent: tenderness, meningismus Respiratory exam: Present: normal lung sounds bilaterally. Absent: respiratory distress, wheezes, rales, rhonchi, stridor Cardiovascular Exam: Present: regular rate, normal rhythm, normal heart sounds. Absent: systolic murmur, diastolic murmur, rubs, gallop, clicks GI/Abdominal exam: Present: soft, normal bowel sounds. Absent: distended, tenderness, guarding, rebound, rigid Neurological exam: Present: alert, oriented X3, CN II-XII intact Psychiatric exam: Present: normal affect, normal mood Skin exam: Present: warm, dry, intact, normal color. Absent: rash Course Vital Signs 09/12/17 09/12/17 09/12/17 17:57 18:51 19:02 Temperature 102.0 F H 101.9 F H Pulse Rate 152 H 127 H Respiratory 18 18 Rate Blood Pressure 164/91 134/79 O2 Sat by Pulse 96 96 Oximetry 09/12/17 09/12/17 19:53 21:01 Temperature 99.5 F 98.2 F Pulse Rate 111 H 106 H Respiratory 16 18 Rate Blood Pressure 134/81 O2 Sat by Pulse 100 98 Oximetry Medical Decision Making - Medical Decision Making 22-year-old female patient presents to the emergency department today for complaints of fever, cough, nasal congestion, and general malaise. patient was febrile upon arrival. Physical examination did reveal oropharyngeal erythema, lungs are clear to auscultation with good air movement. Patient did have evidence of nasal congestion. No lymphadenopathy was noted. Patient did tested negative for influenza and strep. Her chest x-ray was clear for any acute cardiopulmonary process. Patient was tachycardic as well upon arrival so we did administer 1 L of IV fluids. She was given ibuprofen and acetaminophen. Her vital signs did improve. She'll be discharged home at this time to follow -up with her primary care physician for recheck in 1-2 days. She is given education regarding symptom management. She is instructed to return here immediately for any new, worsening, or concerning symptoms. She verbalizes understanding and agrees with this plan. - Lab Data Lab Results 09/12/17 09/12/17 Range/Units 18:00 19:14 Influenza Type A RNA Not Detected (Not Detectd) Influenza Type B (PCR) Not Detected (Not Detectd) Group A Strep Rapid Negative (Negative) - Radiology Data Radiology results: report reviewed, image reviewed Two-view x-ray of the chest shows no focal airspace opacity, pleural effusion, or pneumothorax. The cardiac silhouette size is within normal limits. The osseous structures are intact. Mild dextroconvex curvature of the lower thoracic spine is noted. Impression by Dr. Arango shows no acute cardiopulmonary process. Disposition Clinical Impression: Viral upper respiratory illness Disposition: HOME SELF-CARE Condition: Good Instructions: Fever in Adults (ED), Upper Respiratory Infection (ED) Additional Instructions: Increase fluids. Rest. Use [id number] nasal decongestants or cough and cold remedies. Alternate ibuprofen and acetaminophen for fever control. Follow -up with your primary care physician for recheck in 1-2 days. Return here immediately for any new, worsening, or concerning symptoms. Referrals: Bunny Deluca DO [Primary Care Provider] - 1-2 days Time of Disposition: 20:51
[2017-09-12] MEDS ORDERED: SODIUM CHLORIDE 0.9% 1,000 ML IV ONE (19:39)
[2017-09-12 21:02] VITALS: BP 134/81; PULSE 106; RESP 18; TEMP 98.2
== END 2017-09-12 21:02 | disposition home or self-care (01) ==
LOC: EC 17:54
DX: J39.8 Other specified diseases of upper respiratory tract (principal); R00.0 Tachycardia, unspecified; Z79.899 Other long term (current) drug therapy; Z91.011 Allergy to milk products
CPT/HCPCS: 71046; 87081; 87430; 87502; 96360; 99283

== ENCOUNTER 2017-09-14 03:45 | Emergency (ER) | payer OTHER ==
[2017-09-14] MEDS ORDERED: ACETAMINOPHEN TAB 325 MG TAB PO STA (04:13)
[2017-09-14] MEDS ORDERED: IBUPROFEN 400 MG TAB PO STA (04:13)
--- NOTE | 2017-09-14 04:34 | XR ---
EXAM: XR Chest, 2 Views CLINICAL HISTORY: Reason: cough TECHNIQUE: Frontal and lateral views of the chest. COMPARISON: 09/12/17 FINDINGS: Lungs: Unremarkable. No consolidation. Pleural space: Unremarkable. No pneumothorax. Heart: Unremarkable. No cardiomegaly. Mediastinum: Unremarkable. Bones/joints: Unremarkable. IMPRESSION: Normal chest x-rays.
[2017-09-14 04:49] VITALS: RESP 18
--- NOTE | 2017-09-14 05:10 | ED ---
General Adult HPI - General Chief complaint: Upper Respiratory Infection Stated complaint: FEVER,VOMITING Time Seen by Provider: 09/14/17 03:59 Source: patient, family Mode of arrival: ambulatory Limitations: no limitations - History of Present Illness Initial comments: This patient is a 22-year-old woman presenting for reevaluation. She has off with a little bit of brownish sputum, congestion, and feeling like she has had intermittent fevers. The symptoms have been going on she states for over a week. She was told that she has influenza and had expected that she should see some improvement by now. She is denying dyspnea. -: days(s) Consistency: constant Improves with: none Worsens with: none Associated Symptoms: cough - Related Data Home Medications Medication Instructions Recorded Confirmed Medroxyprogesterone Acetate 10 mg PO DIRECTED 06/14/17 09/14/17 [Provera] Multivitamins, Thera [Multivitamin 1 tab PO DAILY 07/04/17 09/14/17 (formulary)] Vitamin C/Biotin [Hair, Skin and 1 tab PO DAILY 07/04/17 09/14/17 Nails] Previous Rx's Medication Instructions Recorded Docusate [Colace] 100 mg PO BID #20 cap 07/09/17 HYDROcodone/APAP 5-325MG [[place] 1 each PO Q6H PRN #20 tab 07/09/17 5-325] Pantoprazole Sodium [Protonix] 40 mg PO DAILY #30 tablet. 07/09/17 guaiFENesin-Coden 100-10MG/5ML 10 ml PO Q6HR PRN #280 ml 09/14/17 [Robitussin AC] Allergies Allergy/AdvReac Type Severity Reaction Status Date / Time lactose Allergy throat Verified 09/14/17 03:56 swelling Milk Containing Products AdvReac Unknown CONGESTION Verified 09/14/17 03:56 [Dairy] Review of Systems ROS Statement: Those systems with pertinent positive or pertinent negative responses have been documented in the HPI. ROS Other: All systems not noted in ROS Statement are negative. Constitutional: Denies: fever, chills Respiratory: Reports: cough. Denies: dyspnea, wheezes, hemoptysis Cardiovascular: Denies: chest pain, palpitations Gastrointestinal: Reports: vomiting (Posttussive emesis). Denies: abdominal pain, nausea, diarrhea Genitourinary: Denies: dysuria Musculoskeletal: Denies: back pain Skin: Denies: rash Neurological: Denies: headache Past Medical History Past Medical History: Asthma, GERD/Reflux, Seizure Disorder Additional Past Medical History / Comment(s): migraines, no rx for seizure, diarrhea, wt loss and abdminal pain, fatty liver, spinal stenosis, polycystic ovarian symdrome History of Any Multi-Drug Resistant Organisms: None Reported Past Surgical History: No Surgical Hx Reported Additional Past Surgical History / Comment(s): cyst removed from scalp Past Anesthesia/Blood Transfusion Reactions: Motion Sickness Past Psychological History: Anxiety, Depression Smoking Status: Never smoker Past Alcohol Use History: None Reported Past Drug Use History: None Reported - Past Family History Mother Family Medical History: No Reported History Additional Family Medical History / Comment(s): scolosis; ovarian cyst Father Additional Family Medical History / Comment(s): problems with back discs Brother(s) Family Medical History: Hypertension General Exam Limitations: no limitations General appearance: alert, in no apparent distress Head exam: Present: atraumatic, normocephalic Eye exam: Present: normal appearance. Absent: scleral icterus, conjunctival injection ENT exam: Present: mucous membranes moist, TM's normal bilaterally, normal external ear exam. Absent: normal oropharynx (There is some injection of the pharynx) Neck exam: Present: normal inspection, full ROM, lymphadenopathy. Absent: meningismus Respiratory exam: Present: normal lung sounds bilaterally. Absent: respiratory distress, wheezes, rales, rhonchi, stridor Cardiovascular Exam: Present: regular rate, normal rhythm, normal heart sounds GI/Abdominal exam: Present: soft. Absent: tenderness Extremities exam: Present: normal inspection, normal capillary refill. Absent: pedal edema, calf tenderness Neurological exam: Present: alert Skin exam: Present: warm, dry, intact, normal color. Absent: rash Course Vital Signs 09/14/17 09/14/17 09/14/17 03:52 04:47 06:09 Temperature 100.7 F H 99.5 F 97.8 F Pulse Rate 115 H 105 H 98 Respiratory 20 18 18 Rate Blood Pressure 158/94 143/85 130/78 O2 Sat by Pulse 97 97 96 Oximetry Disposition Clinical Impression: Influenza Disposition: HOME SELF-CARE Condition: Good Instructions: Influenza (ED) Prescriptions: guaiFENesin-Coden 100-10MG/5ML [Robitussin AC] 10 ml PO Q6HR PRN #280 ml PRN Reason: Cough Referrals: Bunny Deluca DO [Primary Care Provider] - 1-2 days
[2017-09-14] MEDS ORDERED: guaiFENesin-Coden 100-10MG/5ML 10 ML CUP PO STA (05:14)
[2017-09-14 06:11] VITALS: BP 130/78; PULSE 98; TEMP 97.8
--- NOTE | 2017-09-17 00:46 | CDI ---
Documentation Clarification OP Isidro Goodman MD Please do addendum to ED report for HPI , Physical exam and MDM. Thank you, Mervat Parks Primer Press Operator If you have any question, Please contact copy manager at [phone] [facility]
== END 2017-09-14 06:12 | disposition home or self-care (01) ==
LOC: EC 03:45
DX: J11.1 Influenza due to unidentified influenza virus with other respiratory manifestations (principal); Z79.899 Other long term (current) drug therapy; Z91.011 Allergy to milk products; Z53.8 Procedure and treatment not carried out for other reasons
CPT/HCPCS: 71046; 99283

== ENCOUNTER → 2017-10-07 | Outpatient (CLI) | payer OTHER ==
--- NOTE | 2017-10-07 13:07 | XR ---
EXAMINATION TYPE: XR cervical spine comp DATE OF EXAM: 10/07/2017 COMPARISON: NONE HISTORY: Pain TECHNIQUE: Four views are submitted. FINDINGS: The odontoid is intact. There are no compression deformities. The prevertebral soft tissue structur es are within normal limits. IMPRESSION: 1. No acute process. Follow-up with MRI as clinically warranted.
--- NOTE | 2017-10-07 13:08 | XR ---
EXAM TYPE: LUMBAR SPINE X RAY SERIES COMPARISON: 05/25/2016 HISTORY: Pain TECHNIQUE: 3 views are submitted. FINDINGS: Alignment is anatomic. The pedicles are intact. The transverse processes are intact. There is mild wedge deformity of L3 which is stable. Schmorl's nodes noted. Surgical clips in the right upper quad rant noted. IMPRESSION: 1. No acute process.
== END | disposition home or self-care (01) ==
LOC: RADXRMAIN 12:32
PROVIDERS: ATTEND Physician Assistant
DX: M54.2 Cervicalgia (principal); M54.5 Low back pain; R61 Generalized hyperhidrosis
CPT/HCPCS: 72050; 72100

== ENCOUNTER 2017-12-17 02:14 | Emergency (ER) | payer OTHER ==
[2017-12-17 02:21] VITALS: BP 166/112; PULSE 124; RESP 28; TEMP 98.5
[2017-12-17] MEDS ORDERED: KETOROLAC 30 MG/ML 1 ML VIAL IM STA (02:30)
[2017-12-17] MEDS ORDERED: AMOXIC-POT CLAV 875MG STARTER 2 EACH TABLET PO STA (02:58)
[2017-12-17] MEDS ORDERED: DIPH,PERTUS(ACELL)TETVAC-LF 0.5 ML VIAL IM ONE (02:59)
--- NOTE | 2017-12-17 02:59 | ED ---
Animal Bite HPI - General Chief Complaint: Animal Bite Stated Complaint: Cat Bite Time Seen by Provider: 12/17/17 02:24 Source: patient Mode of arrival: ambulatory Limitations: no limitations - History of Present Illness Initial Comments: 22-year-old female patient presents to the emergency department today for evaluation of a Bite to her left fifth finger. Patient states this occurred approximately 20 minutes prior to arrival. States that she has had a lot of bleeding from the area. Patient states this is her domestic cat and is up-to- date on its immunizations. Patient denies any numbness or tingling to the finger. She denies any difficulty with range of motion. She is quite anxious and upset, reports she doesn't like the site of blood. Denies any other injuries or bite wounds. Patient denies any headache, neck pain, back pain, chest pain, shortness of breath, dizziness, weakness, abdominal pain, nausea, vomiting, or difficulties with bowel movements or urination. Patient states her last tetanus vaccine was in 2010. - Related Data Home Medications Medication Instructions Recorded Confirmed Medroxyprogesterone Acetate 10 mg PO DIRECTED 06/14/17 09/14/17 [Provera] Multivitamins, Thera [Multivitamin 1 tab PO DAILY 07/04/17 09/14/17 (formulary)] Vitamin C/Biotin [Hair, Skin and 1 tab PO DAILY 07/04/17 09/14/17 Nails] Previous Rx's Medication Instructions Recorded Docusate [Colace] 100 mg PO BID #20 cap 07/09/17 HYDROcodone/APAP 5-325MG [Comins 1 each PO Q6H PRN #20 tab 07/09/17 5-325] Pantoprazole Sodium [Protonix] 40 mg PO DAILY #30 tablet. 07/09/17 guaiFENesin-Coden 100-10MG/5ML 10 ml PO Q6HR PRN #280 ml 09/14/17 [Robitussin AC] Amoxic-Pot Clav 875-125Mg 1 tab PO Q12HR #20 tablet 12/17/17 [Augmentin 875-125] Ibuprofen [Motrin] 600 mg PO Q8HR PRN #30 tab 12/17/17 Allergies Allergy/AdvReac Type Severity Reaction Status Date / Time lactose Allergy throat Verified 12/17/17 02:20 swelling Milk Containing Products AdvReac Unknown CONGESTION Verified 12/17/17 02:20 [Dairy] Review of Systems ROS Statement: Those systems with pertinent positive or pertinent negative responses have been documented in the HPI. ROS Other: All systems not noted in ROS Statement are negative. Past Medical History Past Medical History: Asthma, GERD/Reflux, Seizure Disorder Additional Past Medical History / Comment(s): migraines, no rx for seizure, diarrhea, wt loss and abdminal pain, fatty liver, spinal stenosis, polycystic ovarian symdrome History of Any Multi-Drug Resistant Organisms: None Reported Past Surgical History: No Surgical Hx Reported Additional Past Surgical History / Comment(s): cyst removed from scalp Past Anesthesia/Blood Transfusion Reactions: Motion Sickness Past Psychological History: Anxiety, Depression Smoking Status: Never smoker Past Alcohol Use History: None Reported Past Drug Use History: None Reported - Past Family History Mother Family Medical History: No Reported History Additional Family Medical History / Comment(s): scolosis; ovarian cyst Father Additional Family Medical History / Comment(s): problems with back discs Brother(s) Family Medical History: Hypertension General Exam Limitations: no limitations General appearance: alert, in no apparent distress, anxious, other (This is a well-developed, well-nourished adult female patient. Patient is quite anxious and hysterical.) Eye exam: Present: normal appearance, PERRL, EOMI. Absent: scleral icterus, conjunctival injection, periorbital swelling ENT exam: Present: normal exam, normal oropharynx, mucous membranes moist Respiratory exam: Present: normal lung sounds bilaterally. Absent: respiratory distress, wheezes, rales, rhonchi, stridor Cardiovascular Exam: Present: normal rhythm, tachycardia, normal heart sounds. Absent: systolic murmur, diastolic murmur, rubs, gallop, clicks Extremities exam: Present: full ROM, tenderness (To the right fifth finger), normal capillary refill, other (2cm laceration noted to the distal palmar aspect of the right fifth finger. There is active bleeding. Good range of motion against resistance. Skin is otherwise pink, warm, and dry. Cap refill is less than three second. Radial pulse is 2+ and equal bilaterally.). Absent: normal inspection, pedal edema, joint swelling, calf tenderness Neurological exam: Present: alert, oriented X3, CN II-XII intact Psychiatric exam: Present: normal affect, normal mood Skin exam: Present: warm, dry, intact, normal color. Absent: rash Course Vital Signs 12/17/17 02:18 Temperature 98.5 F Pulse Rate 124 H Respiratory 28 H Rate Blood Pressure 166/112 O2 Sat by Pulse 96 Oximetry Procedures - Laceration Laceration #1 Indication: laceration Site: hand (Fifth finger) Size (cm): 2 Description: linear Depth: simple, single layer Pre-repair: irrigated extensively Patient Tolerated Procedure: well, no complications Additional Comments: Wound irrigated extensively with sterile water. Patient tolerated procedure well. Refused anesthetic. Wound was left open to heal by secondary intention due to it being a cat bite. Medical Decision Making - Medical Decision Making 22-year-old female patient presented to the emergency department today for evaluation of a cat bite to the left fifth finger. Physical examination did reveal a 2 cm laceration to the palmar aspect of the finger. Neurovascular status was intact. Patient had good range of motion against resistance. I did irrigate the wound extensively using sterile water. Patient refused anesthetic. Bleeding was controlled with pressure. I did discuss with patient that we will leave the wound open to heal by secondary intention due to it being a Bite and highly infectious. Patient was started on Augmentin. She was given ibuprofen for pain control. She is instructed to follow-up with the doctor for recheck in 1-2 days. She is instructed to return here immediately for any new, worsening, or concerning symptoms. She verbalizes understanding and agrees with this plan. Patient refuses tetanus vaccine. Disposition Clinical Impression: Cat bite of left hand Disposition: HOME SELF-CARE Condition: Good Instructions: Animal Bite (ED) Additional Instructions: The antibiotic prescription and full. Keep wound clean and dry. Follow-up through primary care physician for recheck of the wound in 1-2 days. Return here immediately for any new, worsening, or concerning symptoms. Prescriptions: Amoxic-Pot Clav 875-125Mg [Augmentin 875-125] 1 tab PO Q12HR #20 tablet Ibuprofen [Motrin] 600 mg PO Q8HR PRN #30 tab PRN Reason: Pain Is patient prescribed a controlled substance at d/c from ED?: No Referrals: None,Stated [Primary Care Provider] - 1-2 days Time of Disposition: 02:59
== END 2017-12-17 03:18 | disposition home or self-care (01) ==
LOC: EC 02:14
DX: S61.217A Laceration without foreign body of left little finger without damage to nail, initial encounter (principal); K21.9 Gastro-esophageal reflux disease without esophagitis; Z79.899 Other long term (current) drug therapy; Z91.011 Allergy to milk products; Z53.29 Procedure and treatment not carried out because of patient's decision for other reasons; Z86.69 Personal history of other diseases of the nervous system and sense organs; W55.01XA Bitten by cat, initial encounter
CPT/HCPCS: 99283

== ENCOUNTER 2018-01-04 22:28 | Emergency (ER) | payer OTHER ==
[2018-01-04 23:16] VITALS: BP 142/98
[2018-01-05 00:27] VITALS: PULSE 75; RESP 16; TEMP 978
--- NOTE | 2018-01-05 01:04 | XR ---
EXAMINATION TYPE: XR chest 2V DATE OF EXAM: 01/05/2018 COMPARISON: 09/14/2017 HISTORY: Chest pain TECHNIQUE: Frontal and lateral views of the chest are obtained. FINDINGS: Heart and mediastinum are normal. Lungs are clear. Diaphragm is normal. There are chest le ads. Bony thorax is intact. IMPRESSION: Normal chest. No change.
--- NOTE | 2018-01-05 01:13 | CT ---
EXAMINATION TYPE: CT brain wo con DATE OF EXAM: 01/05/2018 COMPARISON: 01/27/2016 HISTORY: HEADACHE CT DLP: 952.00 mGycm. Automated Exposure Control for Dose Reduction was Utilized. TECHNIQUE: CT scan of the head is performed without contrast. FINDINGS: Ventricles of normal size. There is no mass effect nor midline shift. There is no sign of intracranial hemorrhage. There is mucosal thickening with 2 cm mucous retention cyst in the left maxi llary sinus. Calvarium is intact. CONCLUSION: Negative CT scan of the brain. There is a mucus retention cyst left maxillary sinus that is smaller than old exam.
--- NOTE | 2018-01-05 01:16 | ED ---
Chest Pain HPI - General Chief Complaint: Chest Pain Stated Complaint: chest pain/headache Time Seen by Provider: 01/04/18 23:19 Source: patient Mode of arrival: ambulatory Limitations: no limitations - History of Present Illness Initial Comments: This patient is a 22-year-old woman who presents to be evaluated for left shoulder/chest pain that came on tonight while she was at work. The pains seem to be a little bit worse with certain movements. She did not have any trauma to the shoulder. She did not have any anginal type symptoms. MD Complaint: chest pain -: hour(s) Onset: other (Work) Pain Location: left chest, other (Shoulder) Pain Radiation: none Severity: moderate Quality: aching Consistency: now resolved Improves With: nothing Worsens With: palpation, movement Treatments Prior to Arrival: none - Related Data Previous Rx's Medication Instructions Recorded Ibuprofen [Motrin] 600 mg PO Q8HR PRN #30 tab 12/17/17 Allergies Allergy/AdvReac Type Severity Reaction Status Date / Time lactose Allergy throat Verified 01/04/18 23:17 swelling Milk Containing Products AdvReac Unknown CONGESTION Verified 01/04/18 23:17 [Dairy] Review of Systems ROS Statement: Those systems with pertinent positive or pertinent negative responses have been documented in the HPI. ROS Other: All systems not noted in ROS Statement are negative. Constitutional: Denies: fever, chills, weakness Respiratory: Denies: cough, dyspnea Cardiovascular: Reports: chest pain. Denies: palpitations, syncope Gastrointestinal: Denies: abdominal pain, nausea, vomiting Musculoskeletal: Denies: back pain, joint swelling, arthralgia Skin: Denies: rash Neurological: Denies: headache, weakness, numbness, paresthesias EKG Findings - EKG Results: EKG: interpreted by BEAR WHITE, sinus rhythm (Rate 70 bpm), normal axis, normal QRS, normal ST/T, no acute changes - [place], Pacemaker, Normal: Normal tracing: normal tracing Past Medical History Past Medical History: Asthma, GERD/Reflux, Seizure Disorder Additional Past Medical History / Comment(s): migraines, no rx for seizure, diarrhea, wt loss and abdminal pain, fatty liver, spinal stenosis, polycystic ovarian syndrome History of Any Multi-Drug Resistant Organisms: None Reported Past Surgical History: Cholecystectomy Additional Past Surgical History / Comment(s): cyst removed from scalp Past Anesthesia/Blood Transfusion Reactions: Motion Sickness Past Psychological History: Anxiety, Depression Smoking Status: Never smoker Past Alcohol Use History: None Reported Past Drug Use History: Marijuana - Past Family History Mother Family Medical History: No Reported History Additional Family Medical History / Comment(s): scolosis; ovarian cyst Father Additional Family Medical History / Comment(s): problems with back discs Brother(s) Family Medical History: Hypertension General Exam Limitations: no limitations General appearance: alert, in no apparent distress, obese Head exam: Present: atraumatic, normocephalic Eye exam: Present: normal appearance Neck exam: Present: normal inspection, full ROM. Absent: tenderness, meningismus Respiratory exam: Present: normal lung sounds bilaterally, chest wall tenderness. Absent: respiratory distress, wheezes, rales, rhonchi, stridor, accessory muscle use, decreased breath sounds Cardiovascular Exam: Present: regular rate, normal rhythm, normal heart sounds. Absent: systolic murmur, diastolic murmur, rubs, gallop GI/Abdominal exam: Present: soft. Absent: distended, tenderness, guarding, rebound, rigid Extremities exam: Present: normal inspection, normal capillary refill. Absent: pedal edema, calf tenderness Back exam: Present: normal inspection. Absent: CVA tenderness (R), CVA tenderness (L) Neurological exam: Present: alert Skin exam: Present: warm, dry, intact, normal color. Absent: rash Course Vital Signs 01/04/18 01/04/18 01/05/18 22:56 23:16 00:25 Temperature 98.3 F 978.0 F H Pulse Rate 75 78 75 Respiratory 18 18 16 Rate Blood Pressure 113/56 142/98 142/98 O2 Sat by Pulse 98 97 96 Oximetry Chest Pain MDM - MDM Patient does have some tenderness at reproduces her symptoms. Chest x-ray and EKG are negative. She does not have cardiac risk factors. Discussed appropriate return parameters and follow-up. Disposition Clinical Impression: Chest pain, Mucous retention cyst of maxillary sinus Disposition: HOME SELF-CARE Condition: Good Instructions: Chest Pain (ED) Is patient prescribed a controlled substance at d/c from ED?: No Referrals: None,Stated [Primary Care Provider] - 1-2 days Bereket Pickard MD [STAFF PHYSICIAN] - 1-2 days
== END 2018-01-05 01:44 | disposition home or self-care (01) ==
LOC: EC 22:28
DX: R07.9 Chest pain, unspecified (principal); J34.1 Cyst and mucocele of nose and nasal sinus; Z91.011 Allergy to milk products
CPT/HCPCS: 70450; 71046; 93005; 99285

== ENCOUNTER 2018-02-02 15:59 | Emergency (ER) | payer OTHER ==
[2018-02-02] MEDS ORDERED: ACETAMINOPHEN TAB 500 MG TAB PO STA (16:40)
[2018-02-02] MEDS ORDERED: IPRATROPIUM-ALBUTEROL 3 ML NEB INHALATION STA (17:22)
[2018-02-02] MEDS ORDERED: IBUPROFEN 600 MG TAB PO STA (17:23)
[2018-02-02] MEDS ORDERED: guaiFENesin-DM 100-10MG/5ML 10 ML CUP PO STA (17:23)
--- NOTE | 2018-02-02 17:29 | ED ---
URI HPI - General Chief Complaint: Upper Respiratory Infection Stated Complaint: LACEY hx asthma Time Seen by Provider: 02/02/18 17:12 Source: patient Mode of arrival: ambulatory Limitations: no limitations - History of Present Illness Initial Comments: 22 year-old female patient presents the emergency department today for evaluation of cough, nasal congestion, and sore throat 4 days. Patient states that she has also had fever with this as high as 102F. Has been having headaches and body aches with this. Patient states that there are multiple family members and friends with similar symptoms. Her brother was recently diagnosed with strep throat. States that she has had a history of asthma and she feels like it is hard to breathe. Patient states when she coughs she does have some pain in her chest. She denies any sputum production. Denies any dizziness, weakness, rash. Patient denies any recent abdominal pain, nausea, vomiting, diarrhea, constipation, back pain, numbness, tingling, dizziness, weakness, hematuria, dysuria, urinary urgency, urinary frequency, headache, visual changes, or any other complaints. She denies any chance of . - Related Data Home Medications Medication Instructions Recorded Confirmed Biotin 5,000 mcg PO DAILY 02/02/18 02/02/18 L.acidoph,Paracasei, B.lactis 1 cap PO DAILY 02/02/18 02/02/18 [Probiotic] Multivitamins, Thera [Multivitamin 1 tab PO DAILY 02/02/18 02/02/18 (formulary)] [place]-3 Fatty Acids/Fish Oil [Fish 1 cap PO DAILY 02/02/18 02/02/18 Oil 1,000 mg Softgel] Previous Rx's Medication Instructions Recorded Pseudoephedrine [Sudafed] 30 mg PO Q6H #12 tablet 02/02/18 guaiFENesin-DM 100-10MG/5ML 10 ml PO Q6H #200 ml 02/02/18 [Robitussin DM] Allergies Allergy/AdvReac Type Severity Reaction Status Date / Time lactose Allergy throat Verified 02/02/18 17:54 swelling Milk Containing Products AdvReac Unknown CONGESTION Verified 02/02/18 17:54 [Dairy] Review of Systems ROS Statement: Those systems with pertinent positive or pertinent negative responses have been documented in the HPI. ROS Other: All systems not noted in ROS Statement are negative. Past Medical History Past Medical History: Asthma, GERD/Reflux, Seizure Disorder Additional Past Medical History / Comment(s): migraines, diarrhea, wt loss and abdminal pain, fatty liver, spinal stenosis, polycystic ovarian syndrome History of Any Multi-Drug Resistant Organisms: None Reported Past Surgical History: Cholecystectomy Additional Past Surgical History / Comment(s): cyst removed from scalp Past Anesthesia/Blood Transfusion Reactions: Motion Sickness Past Psychological History: Anxiety, Depression Smoking Status: Never smoker Past Alcohol Use History: None Reported Past Drug Use History: Marijuana - Past Family History Mother Family Medical History: No Reported History Additional Family Medical History / Comment(s): scolosis; ovarian cyst Father Additional Family Medical History / Comment(s): problems with back discs Brother(s) Family Medical History: Hypertension General Exam Limitations: no limitations General appearance: alert, in no apparent distress, other (Well-developed, well- nourished adult female patient in no acute distress. Vital signs upon presentation are temperature 100.2F, pulse 133, respirations 18, blood pressure 129/91, pulse ox 96% on room air.) Eye exam: Present: normal appearance, PERRL, EOMI. Absent: scleral icterus, conjunctival injection, periorbital swelling ENT exam: Present: normal exam, normal oropharynx, mucous membranes moist Respiratory exam: Present: normal lung sounds bilaterally, other (Dry cough noted throughout exam. Respirations even and unlaboerd. ). Absent: respiratory distress, wheezes, rales, rhonchi, stridor Cardiovascular Exam: Present: regular rate, normal rhythm, normal heart sounds. Absent: systolic murmur, diastolic murmur, rubs, gallop, clicks GI/Abdominal exam: Present: soft, normal bowel sounds. Absent: distended, tenderness, guarding, rebound, rigid Neurological exam: Present: alert, oriented X3, CN II-XII intact Psychiatric exam: Present: normal affect, normal mood Skin exam: Present: warm, dry, intact, normal color. Absent: rash Course Vital Signs 02/02/18 02/02/18 02/02/18 16:37 17:53 18:03 Temperature 100.2 F H Pulse Rate 133 H 112 H 112 H Respiratory 18 Rate Blood Pressure 129/91 O2 Sat by Pulse 96 Oximetry Medical Decision Making - Medical Decision Making 22-year-old female patient presented to the emergency department today for complaints of cough, nasal congestion, and sore throat 4 days. Patient has been having fevers. Physical examination is unremarkable. Lungs are clear to auscultation with good air movement. Patient is in no respiratory distress. X- ray showed subsegmental atelectasis in the right midlung with no evidence of pneumonia. Strep screen was negative. Did discuss findings and results with the patient. We did discuss probability of her having a viral upper respiratory infection. We discussed supportive care and management at home. She is instructed to follow-up with her primary care physician for recheck in 1- 2 days. Return parameters discussed in detail. She verbalizes understanding and agrees with this plan. - Lab Data Lab Results 02/02/18 Range/Units 17:40 Group A Strep Rapid Negative (Negative) - Radiology Data Radiology results: report reviewed, image reviewed Two-view x-ray of the chest is obtained. Report was reviewed in its entirety. Impression by Dr. Felix shows subsegmental atelectasis in the right midlung that is new compared to old exam. Normal heart. Disposition Clinical Impression: Viral upper respiratory illness Disposition: HOME SELF-CARE Condition: Good Instructions: Upper Respiratory Infection (ED) Additional Instructions: Increase fluids. Rest. Take medications as directed. Try [id number] nasal decongestants for symptom relief. Follow-up with her primary care physician for recheck in 1-2 days. Return here immediately for any new, worsening, or concerning symptoms. Prescriptions: guaiFENesin-DM 100-10MG/5ML [Robitussin DM] 10 ml PO Q6H #200 ml Pseudoephedrine [Sudafed] 30 mg PO Q6H #12 tablet Is patient prescribed a controlled substance at d/c from ED?: No Referrals: Alvin Rushing DO [Primary Care Provider] - 1-2 days Time of Disposition: 18:56
--- NOTE | 2018-02-02 17:43 | XR ---
EXAMINATION TYPE: XR chest 2V DATE OF EXAM: 02/02/2018 COMPARISON: 01/05/2018 HISTORY: Asthma difficulty breathing TECHNIQUE: Frontal and lateral views of the chest are obtained. FINDINGS: Heart and mediastinum are normal. There is mild linear density in the right midlung. The o ther lung ramos are clear. There is no pleural effusion. Bony thorax is intact. IMPRESSION: There is subsegmental atelectasis in the right midlung that is new compared to old exam. Normal heart.
[2018-02-02 19:17] VITALS: BP 126/91; PULSE 98; RESP 16; TEMP 99
== END 2018-02-02 19:17 | disposition home or self-care (01) ==
LOC: EC 15:59
DX: J06.9 Acute upper respiratory infection, unspecified (principal); Z79.899 Other long term (current) drug therapy; Z91.011 Allergy to milk products; Z91.018 Allergy to other foods
CPT/HCPCS: 71046; 87081; 87430; 94640; 99284

== ENCOUNTER 2023-07-09 14:39 | Emergency (ER) | payer OTHER ==
[2023-07-09 15:18] LABS: Basophils % (A) 0 %; Eosinophils # (A) 0.2 k/uL (0-0.7); Eosinophils % (A) 2 %; HCT 43.2 % (34.0-46.0); HGB 14.6 gm/dL (11.4-16.0); Lymphocytes # (A) 2.7 k/uL (1.0-4.8); Lymphocytes % (A) 26 %; MCH 27.7 pg (25.0-35.0); MCHC 33.8 g/dL (31.0-37.0); MCV 82.1 fL (80.0-100.0); Mean Platelet Volume 7.4; Monocytes # (A) 0.4 k/uL (0-1.0); Monocytes % (A) 4 %; Neutrophils # (A) 7.2 k/uL (1.3-7.7); Neutrophils % (A) 68 %; Platelet Count 292 k/uL (150-450); RBC 5.27 m/uL (3.80-5.40); RDW 13.7 % (11.5-15.5); WBC 10.6 k/uL (3.8-10.6)
[2023-07-09 15:32] LABS: ALT 66 U/L (4-34); AST 43 U/L (14-36); African American GFR (CKD) >90 (>60 ml/min/1.73 sqM); Albumin 4.3 g/dL (3.5-5.0); Alkaline Phosphatase 74 U/L (38-126); Amylase 68 U/L (30-110); Anion Gap 10 mmol/L; Blood Urea Nitrogen 13 mg/dL (7-17); Calcium 9.7 mg/dL (8.4-10.2); Carbon Dioxide 27 mmol/L (22-30); Chloride 104 mmol/L (98-107); Glucose 91 mg/dL (74-99); Lipase 102 U/L (23-300); Non-African American GFR(CKD) >90 (>60 ml/min/1.73 sqM); Potassium 3.4 mmol/L (3.5-5.1); Sodium 141 mmol/L (137-145); Total Bilirubin 0.4 mg/dL (0.2-1.3)
[2023-07-09] MEDS ORDERED: ACETAMINOPHEN TAB 500 MG TAB PO STA (17:30)
[2023-07-09 17:43] VITALS: RESP 16
[2023-07-09] MEDS ORDERED: MAG HYDROX/AL HYDROX/SIMETH 30 ML, HYOSCYAMINE ELIXIR 10 ML, LIDOCAINE VISCOUS 2% 10 ML PO STA ×3 (17:56)
--- NOTE | 2023-07-09 18:28 | ED ---
Abdominal Pain HPI - General Chief Complaint: Abdominal Pain Stated Complaint: side pain, abdominal pain Time Seen by Provider: 07/09/23 16:28 Source: patient, RN notes reviewed Mode of arrival: ambulatory Limitations: no limitations - History of Present Illness Initial Comments: 27-year-old female presents to the emergency department with chief complaint of "my doctor sent me in for appendicitis." She states that she has been having upper abdominal pain and was evaluated at [facility] for this. She had a computed tomography scan and ultrasound. She states that she followed up with her primary care provider today and was told to come into the emergency department for "appendicitis". Denies any fevers. She admits to nausea without vomiting. She states that the pain is on her right side and epigastric region is worse with eating. - Related Data Home Medications Medication Instructions Recorded Confirmed Biotin [Biotin Disolve] 5,000 mcg PO DAILY 02/02/18 02/02/18 L.acidoph,Paracasei, B.lactis 1 cap PO DAILY 02/02/18 02/02/18 [Probiotic] Multivitamins, Thera [Multivitamin 1 tab PO DAILY 02/02/18 02/02/18 (formulary)] Union-3 Fatty Acids/Fish Oil [Fish 1 cap PO DAILY 02/02/18 02/02/18 Oil 1,000 mg Softgel] Previous Rx's Medication Instructions Recorded Pseudoephedrine [Sudafed] 30 mg PO Q6H #12 tablet 02/02/18 guaiFENesin-DM 100-10MG/5ML 10 ml PO Q6H #200 ml 02/02/18 [Robitussin DM] Metoclopramide [Reglan] 10 mg PO TID PRN #15 tab 07/09/23 Allergies Allergy/AdvReac Type Severity Reaction Status Date / Time lactose Allergy throat Verified 07/09/23 14:46 swelling Milk Containing Products AdvReac Unknown CONGESTION Verified 07/09/23 14:46 (Dairy) [Dairy] Review of Systems ROS Statement: Those systems with pertinent positive or pertinent negative responses have been documented in the HPI. ROS Other: All systems not noted in ROS Statement are negative. Past Medical History Past Medical History: Asthma, GERD/Reflux, Seizure Disorder Additional Past Medical History / Comment(s): migraines, diarrhea, wt loss and abdminal pain, fatty liver, spinal stenosis, polycystic ovarian syndrome History of Any Multi-Drug Resistant Organisms: None Reported Past Surgical History: Cholecystectomy Additional Past Surgical History / Comment(s): cyst removed from scalp Past Anesthesia/Blood Transfusion Reactions: Motion Sickness Past Psychological History: Anxiety, Depression Smoking Status: Never smoker Past Alcohol Use History: None Reported Past Drug Use History: Marijuana - Past Family History Mother Family Medical History: No Reported History Additional Family Medical History / Comment(s): scolosis; ovarian cyst Father Additional Family Medical History / Comment(s): problems with back discs Brother(s) Family Medical History: Hypertension General Exam Limitations: no limitations General appearance: alert, in no apparent distress Head exam: Present: atraumatic, normocephalic, normal inspection Eye exam: Present: normal appearance, PERRL, EOMI. Absent: scleral icterus, conjunctival injection, periorbital swelling ENT exam: Present: normal exam, mucous membranes moist Neck exam: Present: normal inspection. Absent: tenderness, meningismus, lymphadenopathy Respiratory exam: Present: normal lung sounds bilaterally. Absent: respiratory distress, wheezes, rales, rhonchi, stridor Cardiovascular Exam: Present: regular rate, normal rhythm, normal heart sounds. Absent: systolic murmur, diastolic murmur, rubs, gallop, clicks GI/Abdominal exam: Present: soft, normal bowel sounds. Absent: distended, tenderness, guarding, rebound, rigid Extremities exam: Present: normal inspection, full ROM, normal capillary refill. Absent: tenderness, pedal edema, joint swelling, calf tenderness Back exam: Present: normal inspection Neurological exam: Present: alert, oriented X3 Psychiatric exam: Present: normal affect, normal mood Skin exam: Present: warm, dry, intact, normal color. Absent: rash Course Vital Signs 07/09/23 07/09/23 07/09/23 14:44 17:31 18:57 Temperature 98.4 F 98.3 F 98.5 F Pulse Rate 88 72 73 Respiratory 22 16 16 Rate Blood Pressure 164/101 138/96 136/91 O2 Sat by Pulse 96 98 96 Oximetry Medical Decision Making - Medical Decision Making Was pt. sent in by a medical professional or institution (, PA, COPIER REPAIR TECHNICIAN, urgent care, hospital, or skilled nursing...) When possible be specific @ -No Did you speak to anyone other than the patient for history (EMS, parent, family, police, friend...)? What history was obtained from this source @ -No Did you review nursing and triage notes (agree or disagree)? Why? @ -I reviewed and agree with nursing and triage notes Were old charts reviewed (outside hosp., previous admission, EMS record, old EKG, old radiological studies, urgent care reports/EKG's, skilled nursing records)? Report findings @ -CT and ultrasound studies from [facility] Differential Diagnosis (chest pain, altered mental status, abdominal pain women, abdominal pain men, vaginal bleeding, weakness, fever, dyspnea, syncope, headache, dizziness, GI bleed, back pain, seizure, CVA, palpatations, mental health, musculoskeletal)? @ -Differential Abdominal Pain Women: Appendicitis, Cholecystitis, diverticulosis, ischemic bowel, pancreatitis, hepatitis, UTI, gastroenteritis, AAA, incarcerated hernia, bowel obstruction, constipation, inflammatory bowel, hepatitis, peptic ulcer disease, splenic infarction, perforated viscus, vulvitis, ovarian torsion, PID, kidney stone, pl acenta abruption, this is not meant to be an all-inclusive list EKG interpreted by me (3pts min.). @ -None X-rays interpreted by me (1pt min.). @ -None done CT interpreted by me (1pt min.). @ -None done U/S interpreted by me (1pt. min.). @ -None done What testing was considered but not performed or refused? (CT, X-rays, U/S, lab s)? Why? @ -Repeat CT and ultrasound considered patient is having the same symptoms that she was 2 days ago when she had these imaging studies done What meds were considered but not given or refused? Why? @ -None Did you discuss the management of the patient with other professionals (professionals i.e. , PA, COPIER REPAIR TECHNICIAN, lab, RT, psych nurse, social media sr strategy manager, professor of environmental engineering, teacher, chief merchandising officer, director of casework services)? Give summary @ -No Was smoking cessation discussed for >3mins.? @ -No Was critical care preformed (if so, how long)? @ -No Were there social determinants of health that impacted care today? How? (Homelessness, low income, unemployed, alcoholism, drug addiction, transportation, low edu. Level, literacy, decrease access to med. care, halfway, rehab)? @ -No Was there de-escalation of care discussed even if they declined (Discuss DNR or withdrawal of care, Hospice)? DNR status @ -No What co-morbidities impacted this encounter? (DM, HTN, Smoking, COPD, CAD, Cancer, CVA, ARF, Chemo, Hep., AIDS, mental health diagnosis, sleep apnea, m orbid obesity)? @ -None Was patient admitted / discharged? Hospital course, mention meds given and route, prescriptions, significant lab abnormalities, going to OR and other pertinent info. @ -Discharged. Patient was admitted to the emergency department for chief complaint of "appendicitis." Imaging results from [facility] show CT abdomen and pelvis shows no acute process, hepatic steatosis, status post cholecystectomy; abdominal ultrasound shows hepatomegaly, cholecystectomy. Patient does not have the clinical presentation of appendicitis. Negative McBurney's point tenderness, Rovsing sign. She is having epigastric discomfort. No significant tenderness to palpation. Repeat laboratory studies show mild transaminitis which is likely due to hepatic steatosis. No other remarkable abnormalities. Patient will be discharged home with follow-up to her PCP. Patient stable for discharge. Case discussed with Dr. Napoles Undiagnosed new problem with uncertain prognosis? @ -No Drug Therapy requiring intensive monitoring for toxicity (Heparin, Nitro, Insulin, Cardizem)? @ -No Were any procedures done? @ -No Diagnosis/symptom? @ -Abdominal pain Acute, or Chronic, or Acute on Chronic? @ -acute Uncomplicated (without systemic symptoms) or Complicated (systemic symptoms)? @ -Uncomplicated Side effects of treatment? @ -No Exacerbation, Progression, or Severe Exacerbation? @ -No Poses a threat to life or bodily function? How? (Chest pain, USA, VT, pneumonia, PE, COPD, DKA, ARF, appy, cholecystitis, CVA, Diverticulitis, Homicidal, Suicidal, threat to staff... and all critical care pts) @ -No - Lab Data Result diagrams: 07/09/23 14:47 07/09/23 14:47 Lab Results 07/09/23 07/09/23 07/09/23 Range/Units 14:47 14:47 14:47 WBC 10.6 (3.8-10.6) k/uL RBC 5.27 (3.80-5.40) m/uL Hgb 14.6 (11.4-16.0) gm/dL Hct 43.2 (34.0-46.0) % MCV 82.1 (80.0-100.0) fL MCH 27.7 (25.0-35.0) pg MCHC 33.8 (31.0-37.0) g/dL RDW 13.7 (11.5-15.5) % Plt Count 292 (150-450) k/uL MPV 7.4 Neutrophils % 68 % Lymphocytes % 26 % Monocytes % 4 % Eosinophils % 2 % Basophils % 0 % Neutrophils # 7.2 (1.3-7.7) k/uL Lymphocytes # 2.7 (1.0-4.8) k/uL Monocytes # 0.4 (0-1.0) k/uL Eosinophils # 0.2 (0-0.7) k/uL Basophils # 0.0 (0-0.2) k/uL Sodium 141 (137-145) mmol/L Potassium 3.4 L (3.5-5.1) mmol/L Chloride 104 (98-107) mmol/L Carbon Dioxide 27 (22-30) mmol/L Anion Gap 10 mmol/L BUN 13 (7-17) mg/dL Creatinine 0.65 (0.52-1.04) mg/dL Est GFR (CKD-EPI)AfAm >90 (>60 ml/min/1.73 sqM) Est GFR (CKD-EPI)NonAf >90 (>60 ml/min/1.73 sqM) Glucose 91 (74-99) mg/dL Plasma Lactic Acid Chucho 1.3 (0.7-2.0) mmol/L Calcium 9.7 (8.4-10.2) mg/dL Total Bilirubin 0.4 (0.2-1.3) mg/dL AST 43 H (14-36) U/L ALT 66 H (4-34) U/L Alkaline Phosphatase 74 (38-126) U/L Total Protein 7.0 (6.3-8.2) g/dL Albumin 4.3 (3.5-5.0) g/dL Amylase 68 (30-110) U/L Lipase 102 (23-300) U/L Disposition Clinical Impression: Gastritis Disposition: HOME SELF-CARE Condition: Stable Instructions (If sedation given, give patient instructions): Abdominal Pain (ED) Additional Instructions: Please follow up with your primary care provider. Return to the emergency department for new or worsening symptoms. Prescriptions: Metoclopramide [Reglan] 10 mg PO TID PRN #15 tab PRN Reason: Nausea Is patient prescribed a controlled substance at d/c from ED?: No Referrals: Anival Edwards MD [Primary Care Provider] - 1-2 days Danyelle Zhang MD [STAFF PHYSICIAN] - 1-2 days
[2023-07-09 19:14] VITALS: BP 136/91; PULSE 73; TEMP 98.5
== END 2023-07-09 18:59 | disposition home or self-care (01) ==
LOC: EC 14:39
DX: K29.70 Gastritis, unspecified, without bleeding (principal); J45.909 Unspecified asthma, uncomplicated; F12.90 Cannabis use, unspecified, uncomplicated; Z86.59 Personal history of other mental and behavioral disorders; Z91.011 Allergy to milk products
CPT/HCPCS: 36415; 80053; 82150; 83605; 83690; 85025; 99284